=== PATIENT | male | born 1975 | race Caucasian/White ===

== ENCOUNTER → 2016-05-13 | Outpatient (CLI) | payer OTHER ==
[~2016-05-13] MED LIST: AMBI5TAB PO; AZIL1TAB PO; CAL-150C PO; CIPR-250 PO; CYCL10TA PO; ECOT81TA5 PO; LEXA1TAB2 PO; LIDO1OIN2 TOP; LIDO5DIS36 TD; LIPI20TA PO; MULTCAP PO; OXYC1TAB23 PO; PERC7.5T3 PO; REQU2TAB3 PO; REQU4TAB3 PO; TEST200I15 IM; TRIH2TA PO; TYLE325T5 PO; VALI5TAB PO; VIAG100T PO; VICO5TAB16 PO; VITA100066 PO; VITA100072 PO
[2016-05-13 10:45] LABS: EOS # 0.2 K/mm3 (0.0-0.50); EOS % 4.7 % (0.0-3.0); LARGE UNSTAINED CELL # 0.1 K/mm3 (0.0-0.4); LARGE UNSTAINED CELL % 2.7 % (0.0-4.0); LYMPH # 1.7 K/mm3 (1.5-4.5); LYMPH % 38.4 % (24.0-44.0); MEAN CORPUSCULAR HEMOGLOBIN 29.6 pg (27.0-33.0); MEAN CORPUSCULAR HGB CONC 34.5 g/dl (32.0-36.5); MEAN CORPUSCULAR VOLUME 85.6 fl (80.0-96.0); MONO # 0.3 K/mm3 (0.0-0.8); MONO % 6.5 % (0.0-5.0); NEUTROPHILS # 2.1 K/mm3 (1.8-7.7); NEUTROPHILS % 46.6 % (36.0-66.0); PLATELET COUNT, AUTOMATED 253 k/mm3 (150-450); RED CELL DISTRIBUTION WIDTH 12.4 % (11.5-14.5); WHITE BLOOD COUNT 4.4 K/mm3 (4.0-10.0)
[2016-05-13 11:18] LABS: VITAMIN B12 LEVEL 1731 PG/ML
[2016-05-13 12:32] LABS: ALBUMIN/GLOBULIN RATIO 1.18 (1.00-1.93); ALKALINE PHOSPHATASE 99 U/L (45-117); ALT/SGPT 46 U/L (12-78); ANION GAP 6 MEQ/L (8-16); AST/SGOT 29 U/L (15-37); BILIRUBIN,TOTAL 0.3 MG/DL (0.2-1.0); BLOOD UREA NITROGEN 11 MG/DL (7-18); CALCIUM LEVEL 8.6 MG/DL (8.5-10.1); CARBON DIOXIDE LEVEL 32 MEQ/L (21-32); CHLORIDE LEVEL 104 MEQ/L (98-107); CHOLESTEROL LEVEL 178 MG/DL (<200); CREATININE FOR GFR 1.02 MG/DL (0.70-1.30); GLOMERULAR FILTRATION RATE > 60.0 (>60); GLUCOSE, FASTING 77 MG/DL (70-105); POTASSIUM SERUM 4.7 MEQ/L (3.5-5.1); SODIUM LEVEL 142 MEQ/L (136-145); TOTAL PROTEIN 7.4 GM/DL (6.4-8.2); TRIGLYCERIDES LEVEL 132 MG/DL (<150)
== END | disposition home or self-care (01) ==
LOC: M LAB 10:11
PROVIDERS: ATTEND Emergency Medicine
DX: Z98.84 Bariatric surgery status (principal)

== ENCOUNTER → 2016-05-16 | Outpatient (CLI) | payer OTHER ==
[2016-05-16 12:51] LABS: FOLLICLE STIMULATING HORMONE 3.4 mIU/mL (1.4-18.1); LUTEINIZING HORMONE 2.7 mIU/mL (1.5-9.3)
== END ==
LOC: M LAB 11:25
PROVIDERS: ATTEND Emergency Medicine
DX: E29.1 Testicular hypofunction (principal)
CPT/HCPCS: 36415; 83001; 83002; 84402; 84403; 84443; G0103

== ENCOUNTER → 2016-05-29 | Outpatient (CLI) | payer OTHER ==
[2016-05-29 12:48] LABS: PROLACTIN 8.5 NG/ML (2.1-17.7)
[2016-05-29 12:51] LABS: ESTRADIOL 30.1 PG/ML (<39.8)
== END ==
LOC: M SMT 08:54
PROVIDERS: ATTEND Nurse Practitioner Women's Health
DX: E29.1 Testicular hypofunction (principal)
CPT/HCPCS: 36415; 82670; 84146; 84402; 84403; G0463

== ENCOUNTER → 2016-09-09 | Outpatient (CLI) | payer OTHER ==
[~2016-09-09] MED LIST changes: -TRIH2TA PO; +TRIH2TAB3 PO
== END ==
LOC: M LAB 11:40
PROVIDERS: ATTEND Nurse Practitioner Women's Health
DX: E29.1 Testicular hypofunction (principal)

== ENCOUNTER → 2016-12-18 | Outpatient (CLI) | payer OTHER ==
[~2016-12-18] MED LIST changes: -LIDO5DIS36 TD; +LIDO5DIS41 TD; +PERC7.5T11 PO; -PERC7.5T3 PO
[2016-12-18 13:35] LABS: MEAN CORPUSCULAR HEMOGLOBIN 30.9 pg (27.0-33.0); MEAN CORPUSCULAR HGB CONC 34.8 g/dl (32.0-36.5); MEAN CORPUSCULAR VOLUME 88.8 fl (80.0-96.0); RED CELL DISTRIBUTION WIDTH 14.1 % (11.5-14.5); WHITE BLOOD COUNT 3.7 K/mm3 (4.0-10.0)
[2016-12-18 14:16] LABS: ALBUMIN 3.5 GM/DL (3.2-5.2); ALBUMIN/GLOBULIN RATIO 1.17 (1.00-1.93); ALKALINE PHOSPHATASE 78 U/L (45-117); ALT/SGPT 27 U/L (12-78); ANION GAP 7 MEQ/L (8-16); AST/SGOT 28 U/L (15-37); BILIRUBIN,TOTAL 0.2 MG/DL (0.2-1.0); BLOOD UREA NITROGEN 7 MG/DL (7-18); CALCIUM LEVEL 8.4 MG/DL (8.5-10.1); CARBON DIOXIDE LEVEL 28 MEQ/L (21-32); CHLORIDE LEVEL 109 MEQ/L (98-107); CREATININE FOR GFR 1.03 MG/DL (0.70-1.30); GLOMERULAR FILTRATION RATE > 60.0 (>60); GLUCOSE, FASTING 88 MG/DL (70-105); POTASSIUM SERUM 4.5 MEQ/L (3.5-5.1); SODIUM LEVEL 144 MEQ/L (136-145); TOTAL PROTEIN 6.5 GM/DL (6.4-8.2)
== END ==
LOC: M SMT 08:25
PROVIDERS: ATTEND Nurse Practitioner Women's Health
DX: E29.1 Testicular hypofunction (principal)
CPT/HCPCS: 36415; 80053; 84402; 84403; 85027; G0463

== ENCOUNTER → 2018-08-03 | Outpatient (CLI) | payer OTHER ==
[~2018-08-03] MED LIST changes: -VICO5TAB16 PO; +VICO5TAB17 PO; +VITA100018 PO; -VITA100072 PO
[2018-08-03 12:15] LABS: BASO % 0.6 % (0.0-1.0); EOS % 0.2 % (0.0-3.0); HEMATOCRIT 46.8 % (42.0-52.0); HEMOGLOBIN 16.3 g/dl (13.5-17.5); LYMPH # 1.5 10^3/uL (1.5-4.5); LYMPH % 30.7 % (24.0-44.0); MEAN CORPUSCULAR HEMOGLOBIN 30.3 pg (27.0-33.0); MEAN CORPUSCULAR HGB CONC 34.8 g/dl (32.0-36.5); MONO # 0.6 10^3/uL (0.0-0.8); MONO % 11.4 % (0.0-5.0); NEUTROPHILS # 2.8 10^3/uL (1.8-7.7); NEUTROPHILS % 56.9 % (36.0-66.0); PLATELET COUNT, AUTOMATED 267 10^3/uL (150-450); RED BLOOD COUNT 5.38 10^6/uL (4.30-6.10); WHITE BLOOD COUNT 4.9 10^3/uL (4.0-10.0)
[2018-08-03 12:30] LABS: INR 0.98; PARTIAL THROMBOPLASTIN TIME 30.3 SECONDS (25.4-37.6); PROTHROMBIN TIME 13.1 SECONDS (12.1-14.4)
[2018-08-03 12:45] LABS: BLOOD UREA NITROGEN 8 MG/DL (7-18); CALCIUM LEVEL 8.9 MG/DL (8.5-10.1); CARBON DIOXIDE LEVEL 30 MEQ/L (21-32); CHLORIDE LEVEL 102 MEQ/L (98-107); CHOLESTEROL LEVEL 216 MG/DL (<200); CREATININE FOR GFR 0.97 MG/DL (0.70-1.30); GLOMERULAR FILTRATION RATE > 60.0 (>60); GLUCOSE, FASTING 85 MG/DL (70-100); HDL CHOLESTEROL 45 MG/DL (>40); LDL CHOLESTEROL 139 MG/DL (<100); NON-HDL-C 171 MG/DL; POTASSIUM SERUM 4.4 MEQ/L (3.5-5.1); SODIUM LEVEL 136 MEQ/L (136-145); TRIGLYCERIDES LEVEL 161 MG/DL (<150)
== END ==
LOC: M LAB 11:28
PROVIDERS: ATTEND Physician Assistant
DX: Z01.818 Encounter for other preprocedural examination (principal); E78.2 Mixed hyperlipidemia; E29.1 Testicular hypofunction; R29.1 Meningismus

== ENCOUNTER 2019-08-21 10:07 | Inpatient (IN) | payer OTHER ==
[~2019-08-21] VITALS: Ht 190.5 cm; Wt 97.7 kg
[~2019-08-21 10:07] MED LIST changes: +CYCL-707 PO; -CYCL10TA PO
[2019-08-21] MEDS ORDERED: BOOSTRIX/ADACEL VACCINE (DIPHTH/PERTUSS/ACELL/TETANUS) 0.5ML SYR IM ONE (10:30)
[2019-08-21] MEDS ORDERED: ONDANSETRON 4MG/2ML VIAL IV ONE (11:00)
[2019-08-21] MEDS ORDERED: MORPHINE 4 MG/ML 1ML VIAL/SYRINGE (J2270) IV ONE ×2 (11:00→12:00)
[2019-08-21] MEDS ORDERED: FLUO20CA22 PO (11:11)
[2019-08-21] MEDS ORDERED: ZOLP12.515 PO (11:11)
[2019-08-21] MEDS ORDERED: LORA2TAB14 PO (11:11)
[2019-08-21] MEDS ORDERED: PROP20TA72 PO (11:11)
--- NOTE | 2019-08-21 11:14 | REP ---
Clinical: Trauma. Laceration. Technique: AP and lateral views of the right tibia / fibula. Findings: Lateral views demonstrate a thin sliver of presumed bony fragment from the anterior mid tibia. Remainder examination appears normal. Impression: Findings suggesting bony fragment related to trauma from the anterior mid tibia. Electronically Signed by Luis M Toure MD 08/21/2019 11:05 A
[2019-08-21] MEDS ORDERED: ceFAZolin SOD 2 GM in IV 1 EA IV ONE (11:30)
[2019-08-21] MEDS ORDERED: DRIS50003 PO (12:13)
[2019-08-21] MEDS ORDERED: ROPI2TAB3 PO (12:13)
[2019-08-21] MEDS ORDERED: D5W 1,000 ML IV SCH (13:05)
[2019-08-21 14:00] VITALS: BP 112/58
[2019-08-21 14:20] LABS: HEMATOCRIT 42.5 % (42.0-52.0); HEMOGLOBIN 14.7 g/dl (13.5-17.5); MEAN CORPUSCULAR HEMOGLOBIN 29.3 pg (27.0-33.0); MEAN CORPUSCULAR HGB CONC 34.6 g/dl (32.0-36.5); MEAN CORPUSCULAR VOLUME 84.8 fl (80.0-96.0); PLATELET COUNT, AUTOMATED 249 10^3/uL (150-450); RED BLOOD COUNT 5.01 10^6/uL (4.30-6.10); WHITE BLOOD COUNT 5.5 10^3/uL (4.0-10.0)
[2019-08-21] MEDS ORDERED: fentaNYL 100 MCG/2 ML INJECTION (J3010) As Ordered ONE ×2 (14:27→19:05)
[2019-08-21] MEDS ORDERED: dexameTHASONE 4 MG/ML 1ML VIAL (J1100 PER 1MG) As Ordered ONE (14:28)
[2019-08-21] MEDS ORDERED: LIDOCAINE 2% 100MG/5ML SDV (FOR ANES.) As Ordered ONE (14:28)
[2019-08-21] MEDS ORDERED: propofoL 200 MG/20 ML VIAL As Ordered ONE (14:28)
[2019-08-21] MEDS ORDERED: MIDAZOLAM INJ 2MG/2ML VIAL (J2250 PER 1MG) As Ordered ONE (14:28)
[2019-08-21] MEDS ORDERED: ONDANSETRON 4MG/2ML VIAL As Ordered ONE (14:28)
[2019-08-21] MEDS: D5W/0.9% SODIUM CHLORIDE 1,000 ML IV SCH (14:42)
[2019-08-21 14:47] LABS: ALBUMIN 3.6 GM/DL (3.2-5.2); ALT/SGPT 36 U/L (12-78); BILIRUBIN,TOTAL 0.3 MG/DL (0.2-1.0); BLOOD UREA NITROGEN 7 MG/DL (7-18); CALCIUM LEVEL 8.4 MG/DL (8.5-10.1); CARBON DIOXIDE LEVEL 28 MEQ/L (21-32); CHLORIDE LEVEL 109 MEQ/L (98-107); CREATININE FOR GFR 0.85 MG/DL (0.70-1.30); GLOMERULAR FILTRATION RATE > 60.0 (>60); GLUCOSE, FASTING 89 MG/DL (70-100); POTASSIUM SERUM 4.3 MEQ/L (3.5-5.1); SODIUM LEVEL 142 MEQ/L (136-145); TOTAL PROTEIN 6.8 GM/DL (6.4-8.2)
[2019-08-21] MEDS: MORPHINE 4 MG/ML 1ML VIAL/SYRINGE (J2270) IV PRN ×2 (16:25→21:53)
[2019-08-21] MEDS ORDERED: ceFAZolin 2 GM/D5W 50 ML IV BAG (J0690 PER 500MG) As Ordered ONE (16:58)
[2019-08-21] MEDS ORDERED: SCOPOLAMINE 1MG TRANSDERMAL PATCH As Ordered ONE (17:22)
[2019-08-21] MEDS ORDERED: SCOPOLAMINE 1MG TRANSDERMAL PATCH TOP ONE (17:45)
[2019-08-21] MEDS ORDERED: BUPIVACAINE/EPIN 0.25% 30 ML VIAL As Ordered ONE (17:49)
[2019-08-21] MEDS ORDERED: KETOROLAC 60 MG/2 ML VIAL As Ordered ONE (18:13)
[2019-08-21] MEDS ORDERED: ACETAMINOPHEN 1000MG 100ML IV BTL (OFIRMEV) (J0131 PER 10MG) As Ordered ONE (18:13)
--- NOTE | 2019-08-21 18:58 | HPEPDOC ---
General Date of Admission August 21, 2019 at 13:02 Date of Service: August 21, 2019 Other Providers EVA Attending Physician: NINA PUGA MD Chief Complaint The patient is a 44-year-old male admitted with a reason for visit of Laceration Of Right Lower Leg. Source: Patient Exam Limitations: No limitations Timing/Duration: 4-6 hours Severity: Severe History of Present Illness 44 yo man retired ex- with a history of TBI with resultant parkinsonism who presented to the ED after a wood chopping accident with an axe that landed on his R midshin with a laceration, bleeding and visible internal structures. In the ED, he was in significant pain and got morphine and surgery was consulted and Dr. Potter will be taking him to the OR this afternoon. He was otherwise hemodynamically stable, afebrile, and CBC and BMP were unremarkable and EKG non ischemic. Home Medications Scheduled Ergocalciferol (Vitamin D2) (Drisdol) 1,250 Mcg Capsule, 50,000 UNIT PO QWEEK, (Reported) FRIDAY Fluoxetine Hcl (Fluoxetine HCl) 20 Mg Capsule, 40 MG PO DAILY, (Reported) Lorazepam (Lorazepam) 2 Mg Tablet, 2 MG PO TID, (Reported) 0700/1300/1900 Propranolol HCl (Propranolol HCl) 20 Mg Tablet, 20 MG PO BID, (Reported) 0700/1300 Ropinirole HCl (Ropinirole HCl) 2 Mg Tablet, 2 MG PO BID, (Reported) Zolpidem Tartrate (Zolpidem Tartrate ER) 12.5 Mg Tab.mphase, 12.5 MG PO QHS, (Reported) Allergies Coded Allergies: No Known Allergies (Unverified , 09/10/14) Past Medical History Medical History TBI with resultant parkinsonism Anxiety PTSD Surgical History Multiple orthopedic surgeries to back, neck, shoulder and ankle Testicular surgery Abdominal cyst removal Family History Significant Family History: No pertinent family hx Social History * Smoker: Denies Alcohol: Denies Drugs: marijuana (is on medical marijuana for chronic pain) Recent Travel/Sick Contacts: Denies: Recent travel, Recent sick contacts Psychosocial History: Anxiety A-FIB/CHADSVASC A-FIB History Current/History of A-Fib/PAF?: No Current PO Anticoag Therapy: No Age/Risk Factor Scoring CHADSVASC: CHADSVASC Response (Comments) Value Age Risk Factor Age < 65 years old 0 Gender Risk Factor Male 0 Hx of CHF No 0 Hx of HTN No 0 Hx of Stroke/TIA/or VTE No 0 Hx of Diabetes No 0 Hx of Vascular Disease No 0 Total 0 Treatment Treatment ordered: NONE Reason Anticoagulant not given: Not indicated/[id number] Review of Systems Constitutional: Denies: Chills, Fever, Night Sweats Eyes: Denies: Pain, Vision change ENT: Denies: Head Aches, Ear Pain, Dysphagia Skin: Reports: Lesions (bleeding laceration at R midshin); Denies: Rash, Breakdown Pulmonary: Denies: Dyspnea, Cough Cardiovascular: Denies: Chest Pain, Palpitations, Orthopnea, Paroxysmal Noc. Dyspnea, Lt Headedness Gastrointestinal: Denies: Nausea, Vomiting, Abdominal Pain, Diarrhea Genitourinary: Denies: Dysuria, Frequency, Incontinence, Retention Hematologic: Denies: Bruising, Bleeding Excessively Endocrine: Denies: Polydipsia, Polyphagia, Polyuria, Heat Intolerance, Cold Intolerance, Other Endocrine Sx Musculoskeletal: Reports: Leg Pain (R leg pain at sight of axe accident); Denies: Neck Pain, Back Pain, Joint Pain, Muscle Pain, Spasms Neurological: Reports: Other Symptoms (RLE feels numb); Denies: Weakness, Numbness, Change in speech, Confusion Psych: Reports: Anxiety Physical Examination General Exam: Positive: Alert, No Acute Distress Eye Exam: Positive: PERRLA, Conjunctiva & lids normal, EOMI; Negative: Sclera icteric ENT Exam: Positive: Atraumatic, Mucous membr. moist/pink, Pharynx Normal Neck Exam: Positive: Supple; Negative: JVD, thyromegaly Chest Exam: Positive: Clear to auscultation, Normal air movement Heart Exam: Positive: Rate Normal, Regular Rhythm, Normal S1, Normal S2; Negative: Murmurs, Rubs Abdomen Exam: Positive: Normal bowel sounds, Soft; Negative: Tenderness, Hepatospenomegaly Extremity Exam: Positive: Normal pulses, Tenderness (RLE); Negative: Edema, Swelling Skin Exam: Positive: Nl turgor and temperature, Lesion (R midshin laceration 4- 6cm, bloody, with tendons? internal elements on the surface); Negative: Breakdown Neuro Exam: Positive: Normal Speech, Strength at 5/5 X4 ext, Normal Tone, Cranial Nerves 3-12 NL, Other (RUE has resting tremor and natural position is for hadn to curl in contracted position) Psych Exam: Positive: Mental status NL, Anxiety, Oriented x 3 Vital Signs Vital Signs Date Time Temp Pulse Resp B/P (MAP) Pulse Ox O2 Delivery O2 Flow Rate FiO2 08/21/19 16:35 20 Room Air 08/21/19 14:00 97.6 51 112/58 (76) 90 Laboratory Data Labs 24H Laboratory Tests 2 08/21/19 11:45: Coronavirus (COVID-19)(PCR) NEGATIVE 08/21/19 14:04: Nucleated Red Blood Cells % (auto) 0.0, Anion Gap 5L, Glomerular Filtration Rate > 60.0, Calcium Level 8.4L, Total Bilirubin 0.3, Aspartate Amino Transf (AST /SGOT) 16, Alanine Aminotransferase (ALT/SGPT) 36, Alkaline Phosphatase 113, Total Protein 6.8, Albumin 3.6, Albumin/Globulin Ratio 1.13 CBC/BMP Laboratory Tests 08/21/19 14:04 Assessment/Plan 44 yo man who presented after an axe accident while chopping wood for a BBQ and the blade landed on his R melo with a deep laceration with anterior mid tibia bony fragments seen on Xray now going to surgery with Dr. Potter. RLE laceration with bony fragments from anterior mid tibia: -management per surgery, going to surgery shortly -pain management with morphine 4Q4H PRN -continue ancef periop -Dtap booster administered in the ED Anxiety: -continue home ativan TID R arm resting tremor: -continue home propanolol Parknisonism s/s TBI: -continue home requip Depression: --continue home prozac DVT ppx: use SCDs and TEDs Diet: NPO for surgery, otherwise regular Dispo: per surgery team, will monitor for medical issues Plan / VTE VTE Prophylaxis Ordered?: Yes NINA PUGA MD August 21, 2019 18:58
[2019-08-21] MEDS ORDERED: HYDROMORPHONE HCL 0.5 MG/ 0.5 ML SYRINGE (J1170 PER 1) IV PRN (19:00)
[2019-08-21] MEDS ORDERED: ONDANSETRON 4MG/2ML VIAL IV PRN (19:00)
[2019-08-21] MEDS ORDERED: oxyCODONE 5MG TAB PO PRN (19:00)
[2019-08-21] MEDS ORDERED: LR 1,000 ML IV SCH (19:00)
[2019-08-21] MEDS: fentaNYL 100 MCG/2 ML INJECTION (J3010) IV PRN ×6 (19:06→19:43)
[2019-08-21] MEDS: LORazepam 2 MG TAB PO SCH (19:39)
[2019-08-21] MEDS: rOPINIRole 1MG TAB PO SCH ×2 (19:40→20:24)
[2019-08-21 19:45] VITALS: BP 107/61
[2019-08-21] MEDS ORDERED: ceFAZolin SOD 1 GM in D5W MINI-BAG PLUS 50 ML IV SCH (20:00)
[2019-08-21 20:15] VITALS: BP 103/58
[2019-08-21] MEDS ORDERED: zolPIDEM TARTRATE 5 MG TAB PO SCH (21:00)
[2019-08-21 21:15] VITALS: BP 107/58
[2019-08-21] MEDS: ONDANSETRON 4MG/2ML VIAL IV PRN (21:52)
[2019-08-21 22:15] VITALS: BP 105/57
[2019-08-21 23:15] VITALS: BP 117/63
[2019-08-22 00:15] VITALS: BP 116/63
[2019-08-22] MEDS ORDERED: oxyCODONE 5MG TAB PO PRN (00:45)
[2019-08-22] MEDS: ceFAZolin SOD 1 GM in D5W MINI-BAG PLUS 50 ML IV SCH ×3 (00:52→12:54)
[2019-08-22] MEDS: oxyCODONE 5MG TAB PO PRN ×2 (00:53→08:03)
[2019-08-22] MEDS: D5W/0.9% SODIUM CHLORIDE 1,000 ML IV SCH (00:53)
[2019-08-22 02:00] VITALS: BP 108/61
[2019-08-22] MEDS: LORazepam 2 MG TAB PO SCH ×2 (05:23→12:53)
[2019-08-22] MEDS: MORPHINE 4 MG/ML 1ML VIAL/SYRINGE (J2270) IV PRN ×3 (05:23→14:03)
[2019-08-22] MEDS: ONDANSETRON 4MG/2ML VIAL IV PRN (05:23)
[2019-08-22] MEDS: PROPRANOLOL 20 MG TAB PO SCH ×2 (05:25→12:53)
[2019-08-22 06:00] VITALS: BP 116/62
--- NOTE | 2019-08-22 07:22 | RO ---
DATE OF PROCEDURE: 08/21/2019 PREPROCEDURE DIAGNOSIS: Right open tibia fracture. POSTPROCEDURE DIAGNOSIS: Right open tibia fracture. PROCEDURE: Right irrigation and debridement open fracture and open treatment of tibia shaft fracture, closure of complex wound approximately 3 cm. SURGEON: Dr. Uceh Potter AGRONOMY TEACHER: None. ANESTHESIA: INDICATIONS: This is a 44-year-old male who was using an ax and accidentally struck his right leg. He suffered an open fracture to his tibial shaft. We discussed the risks and benefits of surgical intervention. To help decrease his risk of osteomyelitis, we recommend open irrigation and debridement of the open fracture. The patient expressed understanding and agreement with the plan. We discussed risks and benefits of the procedure, including, but not limited to, infection, damage to surrounding structures, incomplete relief and need for further surgery, and patient wished to proceed. BLOOD LOSS: 5 mL. TOURNIQUET TIME: 21 minutes. PREOPERATIVE ANTIBIOTICS: 2 grams of Ancef. COMPLICATIONS: None. DESCRIPTION OF PROCEDURE: The patient was brought back to the operating room (OR) in supine position, underwent general anesthesia, at which point the right leg was prepped and draped in the usual fashion. We then extended the 3 cm traumatic laceration that is over the mid shaft tibia crest 2 cm proximally and distally to get adequate exposure. We sharply debrided skin, subcutaneous tissue, muscle and bone via #15 blade, Bovie and curettes. Once we had adequate debridement, and we had removed the sliver of tibial crest the patient fractured off, which was approximately 3 cm in length and 2 to 3 mm in width and about 2 mm deep, we irrigated 3 liters of normal saline throughout the wound. Once we were happy with our debridement and foreign materials were removed, we closed with #2-0 PDS and #2-0 nylon for skin, dressed with Adaptic gauze, sterile Kerlix, and placed the patient in a posterior-based short-leg splint. The patient was then awakened, taken to the post-anesthesia care unit (PACU) in stable condition. Prior to dressing, patient was also given 30 mL of 0.25% Marcaine with epinephrine in the form of a local block. POSTOPERATIVE PLAN: Patient will be touch-down weightbearing of the right lower extremity for approximately 2 weeks. He will receive Surgical Care Improvement Project (SCIP) antibiotic prophylaxis since there was no significant contaminant, patient has already had his tetanus updated and will likely be discharged tomorrow.
[2019-08-22] MEDS: rOPINIRole 1MG TAB PO SCH (08:03)
[2019-08-22] MEDS ORDERED: FLUoxetine 20 MG CAP PO SCH (09:00)
[2019-08-22] MEDS ORDERED: VITAMIN D 50,000 UNITS CAPSULE (ERGOCALCIFEROL 1.25MG) PO SCH (09:00)
[2019-08-22] MEDS ORDERED: INFLUENZA QUADRIVALENT PF VACCINE 0.5ML SYRINGE (90686) IM ONE (09:00)
[2019-08-22] MEDS ORDERED: OXYC-517 PO (10:19)
--- NOTE | 2019-08-22 11:18 | IPNPDOC ---
Text Note Date of Service The patient was seen on 08/22/19. NOTE General: Alert, No Acute Distress Eye: PERRLA, Conjunctiva & lids normal, EOMI, anicteric ENT: Atraumatic, MMM Neck: Supple, no JVD or thyromegaly Chest: Clear to auscultation, Normal air movement Heart: RRR, no mrg Abdomen: Normal bowel sounds, soft, NTND Extremity: WWP, RLE now in half cast and wrapped without edema or swelling Skin: No erythema or rashes, RLE wrapped Neuro: Normal Speech, Strength at 5/5 X4 ext, Normal Tone, Cranial Nerves 3-12 NL,RUE with baseline resting tremor and hand curled into a loose fist Psych: Mental status NL, Anxiety, Oriented x 3 Labs: reviewed. Assessment: 44 yo man who presented after an axe accident while chopping wood for a BBQ and the blade landed on his R melo with a deep laceration with anterior mid tibia bony fragments seen on Xray s/p surgery with Dr. Potter. Plan: RLE laceration with bony fragments from anterior mid tibia: -management per surgical team -pain management per surgical team, oxy [id number] for mild pain, [id number] for severe pain, morphine 4Q4 IV PRN -continue ancef periop -Dtap booster administered in the ED Anxiety: -continue home ativan TID R arm resting tremor: -continue home propanolol Parknisonism s/s TBI: -continue home requip Depression: --continue home prozac DVT ppx: use SCDs and TEDs Diet: regular Dispo: per surgery team, will monitor for medical issues, otherwise medically cleared for discharge home. VS,Fishbone, I+O VS, Fishbone, I+O Laboratory Tests 08/21/19 14:04 Vital Signs Date Time Temp Pulse Resp B/P (MAP) Pulse Ox O2 Delivery O2 Flow Rate FiO2 08/22/19 06:00 98.4 50 18 116/62 (80) 95 Room Air 08/21/19 19:11 2.0 I&O- Last 24 Hours up to 6 AM 08/22/19 06:00 Intake Total 1840 ml Output Total 205 ml Balance 1635 ml NINA PUGA MD August 22, 2019 07:17
--- NOTE | 2019-08-22 11:37 | DS.PDOC ---
Discharge Summary General Date of Admission August 21, 2019 at 13:02 Date of Discharge 08/22/2019 Attending Physician: NINA PUGA MD Specialist/Consultants Involve: BASIM POTTER MD Discharge Summary PROCEDURES PERFORMED DURING STAY: Right irrigation and debridement open fracture and open treatment of tibia shaft fracture, closure of complex wound approximately 3 cm, by Dr. Potter on 08/21/2019 ADMITTING DIAGNOSES: 1. Right lower extremity laceration 2. Open fracture to his right tibial shaft DISCHARGE DIAGNOSES: 1. Right lower extremity laceration 2. Open fracture to his right tibial shaft 3. History of TBI with residual parkinsonism 4. PTSD 5. Anxiety disorder 6. chronic back pain COMPLICATIONS/CHIEF COMPLAINT: Laceration Of Right Lower Leg. HISTORY OF PRESENT ILLNESS: 44 yo man retired ex- with a history of TBI with residual parkinsonism who presented to the ED after a wood chopping accident with an axe that landed on his R midshin with a laceration, bleeding and visualization internal structures. HOSPITAL COURSE: In the ED, he was in significant pain and got morphine and surgery was consulted and Dr. Potter will be taking him to the OR this afternoon. He was otherwise hemodynamically stable, afebrile, and CBC and BMP were unremarkable and EKG non ischemic. Surgery was consulted from the ED and he had a right irrigation and debridement of open fracture and open treatment of tibia shaft fracture with closure of complex wound approximately 3 cm, by Dr. Potter on 08/21/2019 to help decrease his risk of osteomyelitis. Postop, surgery recommended touch-down weightbearing of the right lower extremity for approximately 2 weeks, Surgical Care Improvement Project (SCIP) antibiotic prophylaxis since there was no significant contaminant, and had been given the tetanus booster in the ED on presentation. He otherwise remained clinically stable and pain was managed by the surgical team. Of note, he received periop Ancef and is now being discharged home with surgery follow up. DISCHARGE MEDICATIONS: Please see below. ALLERGIES: Please see below. PHYSICAL EXAMINATION ON DISCHARGE: VITAL SIGNS: Please see below. General: Alert, No Acute Distress Eye: PERRLA, Conjunctiva & lids normal, EOMI, anicteric ENT: Atraumatic, MMM Neck: Supple, no JVD or thyromegaly Chest: Clear to auscultation, Normal air movement Heart: RRR, no mrg Abdomen: Normal bowel sounds, soft, NTND Extremity: WWP, RLE now in half cast and wrapped without edema or swelling Skin: No erythema or rashes, RLE wrapped Neuro: Normal Speech, Strength at 5/5 X4 ext, Normal Tone, Cranial Nerves 3-12 NL,RUE with baseline resting tremor and hand curled into a loose fist Psych: Mental status NL, Anxiety, Oriented x 3 LABORATORY DATA: Please see below. IMAGING: Tibia, Fibula lower leg RIGHT Lateral views demonstrate a thin sliver of presumed bony fragment from the anterior mid tibia. Remainder examination appears normal. Impression: Findings suggesting bony fragment related to trauma from the anterior mid tibia. PROGNOSIS: Good ACTIVITY: surgery recommended touch-down weightbearing of the right lower extremity for approximately 2 weeks DIET: Regular DISCHARGE PLAN: Surgery recommended touch-down weightbearing of the right lower extremity for approximately 2 weeks, Surgical Care Improvement Project (SCIP) antibiotic prophylaxis since there was no significant contaminant DISPOSITION: Home DISCHARGE INSTRUCTIONS: 1. Surgery recommended touch-down weightbearing of the right lower extremity for approximately 2 weeks, Surgical Care Improvement Project (SCIP) antibiotic prophylaxis since there was no significant contaminant ITEMS TO FOLLOWUP ON ON OUTPATIENT: 1. Right lower extremity laceration 2. Open fracture to his right tibial shaft DISCHARGE CONDITION: Stable TIME SPENT ON DISCHARGE: 32 minutes. Vital Signs/I&Os Vital Signs Date Time Temp Pulse Resp B/P (MAP) Pulse Ox O2 Delivery O2 Flow Rate FiO2 08/22/19 09:58 18 08/22/19 06:00 98.4 50 116/62 (80) 95 Room Air 08/21/19 19:11 2.0 I&O- Last 24 Hours up to 6 AM 08/22/19 06:00 Intake Total 1840 ml Output Total 205 ml Balance 1635 ml Laboratory Data Labs 24H Laboratory Tests 2 08/21/19 11:45: Coronavirus (COVID-19)(PCR) NEGATIVE 08/21/19 14:04: Nucleated Red Blood Cells % (auto) 0.0, Anion Gap 5L, Glomerular Filtration Rate > 60.0, Calcium Level 8.4L, Total Bilirubin 0.3, Aspartate Amino Transf (AST/SGOT) 16, Alanine Aminotransferase (ALT/SGPT) 36, Alkaline Phosphatase 113, Total Protein 6.8, Albumin 3.6, Albumin/Globulin Ratio 1.13 CBC/BMP Laboratory Tests 08/21/19 14:04 Discharge Medications Scheduled Ergocalciferol (Vitamin D2) (Drisdol) 1,250 Mcg Capsule, 50,000 UNIT PO QWEEK, (Reported) FRIDAY Fluoxetine Hcl (Fluoxetine HCl) 20 Mg Capsule, 40 MG PO DAILY, (Reported) Lorazepam (Lorazepam) 2 Mg Tablet, 2 MG PO TID, (Reported) 0700/1300/1900 Propranolol HCl (Propranolol HCl) 20 Mg Tablet, 20 MG PO BID, (Reported) 0700/1300 Ropinirole HCl (Ropinirole HCl) 2 Mg Tablet, 2 MG PO BID, (Reported) Zolpidem Tartrate (Zolpidem Tartrate ER) 12.5 Mg Tab.mphase, 12.5 MG PO QHS, (Reported) Scheduled PRN Oxycodone HCl (Oxycodone HCl) 5 Mg Tablet, 1-2 TABS PO Q4H PRN for PAIN Allergies Coded Allergies: No Known Allergies (Unverified , 09/10/14) NINA PUGA MD August 22, 2019 11:36
[2019-08-22 12:53] VITALS: BP 116/62
--- NOTE | 2019-08-22 13:24 | CR ---
DATE OF CONSULTATION: 08/21/2019 CHIEF COMPLAINT: Right leg pain. HISTORY OF PRESENT ILLNESS: Patient today was outside using an axe, when he accidentally caught his right leg. He immediately appreciated 10/10 pain, swelling, and bleeding. He washed out the wound at home and then presented to the emergency room (ER) due to the continued pain. He was able to ambulate but with significant discomfort, 10/10, sharp, located in anterior tibia. He does complain of diffuse numbness and tingling distal to the laceration toward his foot. The pain is improved with immobilization, pain medication, and worsened with ambulation. Denies any fevers, chills, nausea, or vomiting. A complete 10-system review is significant for pertinent positives and negatives in history of present illness (HPI). All other systems negative. HOME MEDICATIONS: - lorazepam - fluoxetine - zolpidem - propranolol - ergocalciferol - ropinirole PAST SURGERIES: He has had: 1. Right ankle surgery. 2. Shoulder surgery. 3. Back and neck surgery. 4. Testicular surgery. PAST MEDICAL HISTORY: 1. Parkinson's. 2. Anxiety and depression. ALLERGIES: No known drug allergies. SOCIAL HISTORY: Lives at home with his and also uses medical cannabis. PHYSICAL EXAMINATION: Patient awake, alert, oriented, well dressed, appropriate affect. Breathing unlabored on room air. Normocephalic, atraumatic. Bilateral upper extremities: No tenderness to palpation. Full, active range of motion of the fingers, wrists, and elbows without any tenderness or discomfort. Skin intact. Radial pulse 2+, regular rate. Positive anterior interosseous nerve (AIN), posterior interosseous nerve (PIN), and ulnar motor function. Sensation intact to light touch in superficial sensory branch of radial nerve, median nerve, and ulnar nerve. Left lower extremity: No tenderness to palpation. Full, active range of motion of the ankle, knee, and hip. Skin intact. Posterior tibial pulse 2+, regular rate. Positive extensor hallucis longus (EHL), flexor hallucis longus (FHL), tibia, and gastroc motor function. Sensation intact to light touch in superficial peroneal, deep peroneal, sural, saphenous, tibial distributions. Right lower extremity: 3 cm laceration over the tibia, anterior, deep to bone. Positive EHL, FHL, tibia, and gastroc motor function. Posterior tibial pulse 2+, regular rate. No significant gross contamination. Diffuse global decreased sensation about the entire foot in the superficial peroneal, deep peroneal, sural, saphenous, tibial distributions. The laceration is directly over the tibial crest. Imaging is reviewed. X-ray demonstrates tibial cortical fracture at the anterior tibial cortex along the spine. It does not appear to be a complete fracture. White cell count 5.5, hemoglobin and hematocrit 14.7 and 42.5. ASSESSMENT AND PLAN: This is a 44-year-old male who suffered an open laceration and open fracture of his right tibia. I discussed with the patient at this point in time plan is to go in there for irrigation and debridement to decrease the risk of ongoing infection. He is already started on IV Ancef and given updated Tetanus. We will keep him for Surgical Care Improvement Project (SCIP) antibiotic prophylaxis postoperatively given the lack of gross contamination and will discharge after that is complete. He will be touch-down weightbearing on right lower extremity until he is seen in 2 weeks postoperatively.
== END 2019-08-22 14:10 | disposition home or self-care (01) | DRG 494 ==
LOC: M ED 10:07 → M ED INP 13:02 → ENRESERV 13:20 → M MS5PR 14:50
PROVIDERS: ADMIT Internal Medicine; ATTEND Internal Medicine
PROC: 0QBG0ZZ Excision of Right Tibia, Open Approach (ICD-10-PCS; principal; 2019-08-21 11:41)
DX: S82.2 Fracture of shaft of tibia (principal); W27.0XXA Contact with workbench tool, initial encounter; Y92.009 Unspecified place in unspecified non-institutional (private) residence as the place of occurrence of the external cause; Y93.H9 Activity, other involving exterior property and land maintenance, building and construction; Y99.8 Other external cause status; F41.9 Anxiety disorder, unspecified; G20 Parkinson's disease; F32.9 Major depressive disorder, single episode, unspecified; Z87.820 Personal history of traumatic brain injury; F43.10 Post-traumatic stress disorder, unspecified; Z79.899 Other long term (current) drug therapy

== ENCOUNTER → 2019-11-04 | Outpatient (CLI) | payer OTHER ==
[~2019-11-04] MED LIST changes: +DRIS50003 PO; +FLUO20CA22 PO; +LORA2TAB14 PO; +OXYC-517 PO; +PROP20TA72 PO; +ROPI2TAB3 PO; +ZOLP12.518 PO
[2019-11-04 13:53] LABS: BASO % 0.6 % (0.0-1.0); HEMATOCRIT 45.4 % (42.0-52.0); HEMOGLOBIN 15.3 g/dl (13.5-17.5); LYMPH # 1.5 10^3/uL (1.5-5.0); LYMPH % 28.3 % (24.0-44.0); MEAN CORPUSCULAR HEMOGLOBIN 29.7 pg (27.0-33.0); MEAN CORPUSCULAR HGB CONC 33.7 g/dl (32.0-36.5); MONO # 0.4 10^3/uL (0.0-0.8); MONO % 8.1 % (0.0-5.0); NEUTROPHILS # 3.2 10^3/uL (1.5-8.5); NEUTROPHILS % 62.8 % (36.0-66.0); PLATELET COUNT, AUTOMATED 284 10^3/uL (150-450); RED BLOOD COUNT 5.16 10^6/uL (4.30-6.10); WHITE BLOOD COUNT 5.2 10^3/uL (4.0-10.0)
== END ==
LOC: M LAB 12:31
PROVIDERS: ATTEND Nurse Practitioner Psychiatric/Mental Health
DX: F33.1 Major depressive disorder, recurrent, moderate (principal); E29.1 Testicular hypofunction; Z79.899 Other long term (current) drug therapy

== ENCOUNTER → 2019-11-04 | Outpatient (CLI) | payer OTHER ==
[2019-11-04 13:52] LABS: BASO % 0.6 % (0.0-1.0); HEMATOCRIT 45.1 % (42.0-52.0); HEMOGLOBIN 15.3 g/dl (13.5-17.5); LYMPH # 1.4 10^3/uL (1.5-5.0); LYMPH % 28.7 % (24.0-44.0); MEAN CORPUSCULAR HEMOGLOBIN 29.9 pg (27.0-33.0); MEAN CORPUSCULAR HGB CONC 33.9 g/dl (32.0-36.5); MEAN CORPUSCULAR VOLUME 88.3 fl (80.0-96.0); MONO # 0.4 10^3/uL (0.0-0.8); MONO % 8.4 % (0.0-5.0); NEUTROPHILS # 3.1 10^3/uL (1.5-8.5); NEUTROPHILS % 62.1 % (36.0-66.0); PLATELET COUNT, AUTOMATED 277 10^3/uL (150-450); RED BLOOD COUNT 5.11 10^6/uL (4.30-6.10)
[2019-11-04 14:29] LABS: ALBUMIN 3.9 GM/DL (3.2-5.2); ALT/SGPT 23 U/L (12-78); BILIRUBIN,TOTAL 0.5 MG/DL (0.2-1.0); BLOOD UREA NITROGEN 5 MG/DL (7-18); CALCIUM LEVEL 8.9 MG/DL (8.5-10.1); CARBON DIOXIDE LEVEL 29 MEQ/L (21-32); CHLORIDE LEVEL 105 MEQ/L (98-107); CHOLESTEROL LEVEL 190 MG/DL (<200); CHOLESTEROL RISK RATIO 5.135 (<5); CREATININE FOR GFR 0.93 MG/DL (0.70-1.30); GLOMERULAR FILTRATION RATE > 60.0 (>60); GLUCOSE, FASTING 77 MG/DL (70-100); HDL CHOLESTEROL 37 MG/DL (>40); LDL CHOLESTEROL 125 MG/DL (<100); NON-HDL-C 153 MG/DL; POTASSIUM SERUM 4.4 MEQ/L (3.5-5.1); SODIUM LEVEL 140 MEQ/L (136-145); TOTAL PROTEIN 7.4 GM/DL (6.4-8.2); TRIGLYCERIDES LEVEL 139 MG/DL (<150)
== END ==
LOC: M LAB 12:29
PROVIDERS: ATTEND Nurse Practitioner Family
DX: Z00.00 Encounter for general adult medical examination without abnormal findings (principal); Z79.899 Other long term (current) drug therapy

== ENCOUNTER 2020-06-09 15:46 | Emergency (ER) | payer OTHER ==
[~2020-06-09] VITALS: Ht 190.5 cm; Wt 104.5 kg
--- OUTSIDE RECORDS SUMMARY | 2020-06-09 15:53 | CCD ---
Author Author [facility] Organization [facility] Address Unknown Phone Unavailable Care Team Providers Care C[employer]ide Furnace Operator Name Role Phone Oskar Adame PA-C Unavailable Unavailable Oskar Adame PA-C Unavailable Unavailable Oskar Adame PA-C Unavailable Unavailable Oskar Adame PA-C Unavailable Unavailable Oskar Adame PA-C Unavailable Unavailable PHYSICIAN, ER Unavailable Unavailable HERNANDO AGUILAR Unavailable Unavailable Pleskach, Zoila HOME OFFICE CLAIMS EXAMINER Unavailable Unavailable Pleskach, Zoila HOME OFFICE CLAIMS EXAMINER Unavailable Unavailable Pleskach, Zoila HOME OFFICE CLAIMS EXAMINER Unavailable Unavailable Plesk[place], Zoila HOME OFFICE CLAIMS EXAMINER Unavailable Unavailable Pleskach, Zoila HOME OFFICE CLAIMS EXAMINER Unavailable Unavailable P[place], Zoila HOME OFFICE CLAIMS EXAMINER Unavailable Unavailable Pleskach, Zoila HOME OFFICE CLAIMS EXAMINER Unavailable Unavailable Pleskach, Zoila HOME OFFICE CLAIMS EXAMINER Unavailable Unavailable Pleskach, Zoila HOME OFFICE CLAIMS EXAMINER Unavailable Unavailable P[place], Zoila HOME OFFICE CLAIMS EXAMINER Unavailable Unavailable Pleskach, Zoila HOME OFFICE CLAIMS EXAMINER Unavailable Unavailable Pleskach, Zoila HOME OFFICE CLAIMS EXAMINER Unavailable Unavailable Pleskach, Zoila HOME OFFICE CLAIMS EXAMINER Unavailable Unavailable P[place], Zoila HOME OFFICE CLAIMS EXAMINER Unavailable Unavailable Pleskach, Zoila HOME OFFICE CLAIMS EXAMINER Unavailable Unavailable P[place], Zoila HOME OFFICE CLAIMS EXAMINER Unavailable Unavailable P[place], Zoila HOME OFFICE CLAIMS EXAMINER Unavailable Unavailable [place], Zoila HOME OFFICE CLAIMS EXAMINER Unavailable Unavailable [place], Zoila HOME OFFICE CLAIMS EXAMINER Unavailable Unavailable P[place], Zoila HOME OFFICE CLAIMS EXAMINER Unavailable Unavailable Pleskach, Zoila HOME OFFICE CLAIMS EXAMINER Unavailable Unavailable [place], Zoila HOME OFFICE CLAIMS EXAMINER Unavailable Unavailable P[place], Zoila HOME OFFICE CLAIMS EXAMINER Unavailable Unavailable P[place], Zoila HOME OFFICE CLAIMS EXAMINER Unavailable Unavailable Plesk[place], Zoila HOME OFFICE CLAIMS EXAMINER Unavailable Unavailable P[place], Zoila HOME OFFICE CLAIMS EXAMINER Unavailable Unavailable P[place], Zoila HOME OFFICE CLAIMS EXAMINER Unavailable Unavailable P[place], Zoila HOME OFFICE CLAIMS EXAMINER Unavailable Unavailable P[place], Zoila HOME OFFICE CLAIMS EXAMINER Unavailable Unavailable [place], Zoila HOME OFFICE CLAIMS EXAMINER Unavailable Unavailable PHYSICIAN, PHYSICIAN ER Unavailable Unavailable SOTO, BESSY DREA PA-C Unavailable Unavailable SOTO, BESSY DREA PA-C Unavailable Unavailable SOTO, BESSY DREA PA-C Unavailable Unavailable SOTO, BESSY DREA PA-C Unavailable Unavailable SOTO, BESSY DREA PA-C Unavailable Unavailable SOTO, BESSY DREA PA-C Unavailable Unavailable SOTO, BESSY DREA PA-C Unavailable Unavailable SOTO, BESSY DREA PA-C Unavailable Unavailable SOTO, BESSY DREA PA-C Unavailable Unavailable MARGY RUBALCAVA Unavailable Unavailable DESJARLAIS, SALMA ANODE BUILDER Unavailable Unavailable DESJARLAIS, SALMA ANODE BUILDER Unavailable Unavailable DESJARLAIS, SALMA ANODE BUILDER Unavailable Unavailable DESJARLAIS, SALMA ANODE BUILDER Unavailable Unavailable DESJARLAIS, SALMA ANODE BUILDER Unavailable Unavailable DESJARLAIS, SALMA ANODE BUILDER Unavailable Unavailable DESJARLAIS, SALMA ANODE BUILDER Unavailable Unavailable DESJARLAIS, SALMA ANODE BUILDER Unavailable Unavailable DESJARLAIS, SALMA ANODE BUILDER Unavailable Unavailable SERGEY, 0000{ Unavailable Unavailable Re-disclosure Warning The records that you are about to access may contain information from federally-assisted alcohol or drug abuse programs. If such information is present, then the following federally mandated warning applies: This information has been disclosed to you from records protected by federal confidentiality rules (42 CFR part 2). The federal rules prohibit you from making any further disclosure of this information unless further disclosure is expressly permitted by the written consent of the person to whom it pertains or as otherwise permitted by 42 CFR part 2. A general authorization for the release of medical or other information is NOT sufficient for this purpose. The Federal rules restrict any use of the information to criminally investigate or prosecute any alcohol or drug abuse patient.The records that you are about to access may contain highly sensitive health information, the redisclosure of which is protected by Article 27-F of the [facility] Public Health law. If you continue you may have access to information: Regarding HIV / AIDS; Provided by facilities licensed or operated by the [facility] Office of Mental Health; or Provided by the [facility] Office for People With Developmental Disabilities. If such information is present, then the following [facility] mandated warning applies: This information has been disclosed to you from confidential records which are protected by state law. State law prohibits you from making any further disclosure of this information without the specific written consent of the person to whom it pertains, or as otherwise permitted by law. Any unauthorized further disclosure in violation of state law may result in a fine or group home sentence or both. A general authorization for the release of medical or other information is NOT sufficient authorization for further disc losure. Family History Family Member Name Family Member Gender Family Member Status Date o f Status Description Data Source(s) Unknown Unknown Problem [facility] ([facility]) Unknown Female Problem [facility] ([facility] ) Unknown Unknown Problem [facility] ([facility] ) Unknown Unknown Problem [facility] ([facility] ) Unknown Unknown Problem [facility] ([facility] ) Unknown Unknown Problem [facility] ([facility] ) Unknown Unknown Problem [facility] ([facility] ) Unknown Unknown Problem [facility] ([facility] ) Unknown Female Problem [facility] ([facility] Encounters Encounter Providers Location Date Indications Data Source(s ) Outpatient Attender: SALMA BARRETO NP 05/24/2020 09: 12:00 AM [facility] Outpatient Attender: SALMA BARRETO NP 04/26/2020 08: 50:00 AM [facility] Outpatient Attender: HERNANDO AGUILAR 04/06/2020 01:00:00 PM [facility] Outpatient Attender: SALMA BARRETO NP 03/30/2020 03: 37:00 PM [facility] Outpatient Attender: SALMA BARRETO NP 02/25/2020 04: 00:00 PM [facility] Outpatient Attender: HERNANDO AGUILAR 02/18/2020 04:00:00 PM [facility] Outpatient Attender: HERNANDO AGUILAR 02/11/2020 03:56:00 PM [facility] Outpatient Attender: SALMA BARRETO ANODE BUILDER 02/10/2020 03: 12:00 PM [facility] Outpatient Attender: HERNANDO AGUILAR 02/04/2020 04:00:00 PM [facility] Outpatient Attender: SALMA BARRETO ANODE BUILDER 01/28/2020 04: 20:00 PM [facility] Outpatient Attender: HERNANDO AGUILAR 01/24/2020 10:57:00 AM [facility] Outpatient Attender: HERNANDO AGUILAR 01/20/2020 09:04:00 AM [facility] Outpatient Attender: SALMA BARRETO ANODE BUILDER 01/13/2020 04: 00:00 PM [facility] Outpatient Attender: HERNANDO AGUILAR 01/07/2020 11:00:00 AM [facility] Outpatient Attender: SALMA BARRETO ANODE BUILDER 12/23/2019 04: 00:00 PM [facility] Outpatient Attender: HERNANDO AGUILAR 12/13/2019 04:00:00 PM [facility] Outpatient Attender: SALMA CARBONERVÍCTOR ANODE BUILDER 12/09/2019 03: 40:00 PM [facility] Outpatient Attender: SALMA RAFRVÍCTOR ANODE BUILDER 11/30/2019 11: 20:00 AM [facility] Outpatient Attender: SALMA MARY LOU ANODE BUILDER 11/16/2019 04: 00:00 PM [facility] Outpatient Attender: HERNANDO AGUILAR 11/16/2019 03:00:00 PM [facility] Outpatient Attender: SALMA CARBONERVÍCTOR ANODE BUILDER 11/11/2019 04: 20:00 PM [facility] Outpatient Attender: HERNANDO AGUILAR 11/09/2019 10:00:00 AM [facility] Outpatient Attender: Zoila GLASERP Main Office 11/04/2019 1 1:45:00 AM [facility] Outpatient Attender: HERNANDO AGUILAR 11/02/2019 01:00:00 PM [facility] Outpatient Attender: SALMA BARRETO NP 10/21/2019 10: 00:00 AM [facility] Outpatient Attender: HERNANDO AGUILAR 10/13/2019 10:00:00 AM [facility] Outpatient Attender: HERNANDO AGUILAR 09/29/2019 04:00:00 PM [facility] Outpatient Attender: SALMA BARRETO NP 09/15/2019 03: 49:00 PM [facility] Outpatient Attender: HERNANDO AGUILAR 09/14/2019 04:00:00 PM [facility] Outpatient Attender: SALMA BARRETO NP 08/31/2019 03: 40:00 PM [facility] Outpatient Attender: SALMA BARRETO NP 08/27/2019 04: 00:00 PM [facility] Admission cancelled. Disregard status an d admitted date. Outpatient Attender: HERNANDO AGUILAR 08/19/2019 09:00:00 AM [facility] Outpatient Attender: HERNANDO AGUILAR 08/02/2019 09:07:00 AM [facility] Outpatient Attender: SALMA BARRETO NP 07/30/2019 03: 40:00 PM [facility] Outpatient Attender: HERNANDO AGUILAR 07/26/2019 10:00:00 AM [facility] Outpatient Attender: DREA MÁRQUEZCAttender: MARGY RUBALCAVA 07/20/2019 04:11:00 PM [facility] Emergency Attender: ER PHYSICIAN 07/19/2019 06:08:16 AM E [facility] Attender: 0000{ DOS RIOS 0 05:39:00 AM EDT - 07/19/2019 07:48:00 AM EDT [facility] Emergency Attender: Andrés Montes: ER PHYSICIAN 07/19/2019 05:39:00 AM EDT - 07/19/2019 07:48:00 AM EDT CHEST PAIN [facility] CHEST PAIN Patient discharged. Outpatient Attender: SALMA BARRETO NP 07/15/2019 04: 20:00 PM [facility] Outpatient Attender: SALMA BARRETO NP 06/29/2019 04: 40:00 PM [facility] Outpatient Attender: SALMA BARRETO NP 02/09/2019 03: 00:00 PM [facility] Medications Medication Brand Name Start Date Product Form Dose Route Admi nistrative Instructions Pharmacy Instructions Status Indications Reaction Description Data Source(s) 10 mg 05/29/2020 12:00:00 AM EST capsule,extended releas e 24hr 60 TAKE ONE CAPSULE BY MOUTH TWICE A DAY MAXIMUM DAILY DOSE = 2 TAKE ONE CAPSULE BY MOUTH TWICE A DAY MAXIMUM DAILY DOSE = 2 SOLD: 05/29/2020 [facility] 10 mg 04/28/2020 12:00:00 AM EST capsule,extended releas e 24hr 60 TAKE ONE CAPSULE BY MOUTH TWICE A DAY MAXIMUM DAILY DOSE = 2 TAKE ONE CAPSULE BY MOUTH TWICE A DAY MAXIMUM DAILY DOSE = 2 SOLD: 05/01/2020 [facility] Clonidine Hydrochloride 0.2 MG Oral Tablet CLONIDINE HCL 04/25/2020 12:00:00 AM EST tablet 90 TAKE ONE TABLET BY MOUTH THR EE TIMES A DAY NEEDED TAKE ONE TABLET BY MOUTH THREE TIMES A DAY NEEDED SOLD: 05/01/2020 [facility] quetiapine 200 MG Oral Tablet QUETIAPINE FUMARATE 03/31/2020 12: 00:00 AM EST tablet 60 TAKE TWO TABLETS BY MOUTH AT BED TIME TAKE TWO TABLETS BY MOUTH AT BEDTIME SOLD: 05/11/2020 [facility] quetiapine 200 MG Oral Tablet QUETIAPINE FUMARATE 03/31/2020 12: 00:00 AM EST tablet 60 TAKE TWO TABLETS BY MOUTH AT BED TIME TAKE TWO TABLETS BY MOUTH AT BEDTIME SOLD: 04/05/2020 [facility] 10 mg 03/30/2020 12:00:00 AM EST capsule,extended releas e 24hr 60 TAKE ONE CAPSULE BY MOUTH TWICE A DAY MAXIMUM DAILY DOSE = 2 TAKE ONE CAPSULE BY MOUTH TWICE A DAY MAXIMUM DAILY DOSE = 2 SOLD: 03/31/2020 [facility] Clonidine Hydrochloride 0.2 MG Oral Tablet CLONIDINE HCL 03/21/2020 12:00:00 AM EST tablet 90 TAKE ONE TABLET BY MOUTH THR EE TIMES A DAY NEEDED TAKE ONE TABLET BY MOUTH THREE TIMES A DAY NEEDED SOLD: 04/24/2020 [facility] Clonidine Hydrochloride 0.2 MG Oral Tablet CLONIDINE HCL 03/21/2020 12:00:00 AM EST tablet 90 TAKE ONE TABLET BY MOUTH THR EE TIMES A DAY NEEDED TAKE ONE TABLET BY MOUTH THREE TIMES A DAY NEEDED SOLD: 03/22/2020 [facility] quetiapine 200 MG Oral Tablet QUETIAPINE FUMARATE 03/18/2020 12: 00:00 AM EST tablet 30 TAKE ONE TABLET BY MOUTH AT BEDT ELANA TAKE ONE TABLET BY MOUTH AT BEDTIME SOLD: 03/20/2020 [facility] quetiapine 50 MG Oral Tablet QUETIAPINE FUMARATE 03/18/2020 12:0 0:00 AM EST tablet 90 TAKE ONE TABLET BY MOUTH THREE T IMES A DAY TAKE ONE TABLET BY MOUTH THREE TIMES A DAY SOLD: 03/20/2020 [facility] 10 mg 03/01/2020 12:00:00 AM EST capsule,extended releas e 24hr 60 TAKE ONE CAPSULE BY MOUTH TWICE A DAY MAXIMUM DAILY DOSE = 2 TAKE ONE CAPSULE BY MOUTH TWICE A DAY MAXIMUM DAILY DOSE = 2 SOLD: 03/01/2020 [facility] 2 mg 02/26/2020 12:00:00 AM EST tablet 30 TAKE ONE TABLET BY MOUTH AT BEDTIME TAKE ONE TABLET BY MOUTH AT BEDTIME SOLD: 03/30/2020 [facility] 2 mg 02/26/2020 12:00:00 AM EST tablet 30 TAKE ONE TABLET BY MOUTH AT BEDTIME TAKE ONE TABLET BY MOUTH AT BEDTIME SOLD: 05/01/2020 [facility] 2 mg 02/26/2020 12:00:00 AM EST tablet 60 TAKE ONE TABLET BY MOUTH TWICE A DAY MAXIMUM DAILY DOSE = 2 TAKE ONE TABLET BY MOUTH TWICE A DAY MAX IMUM DAILY DOSE = 2 SOLD: 02/26/2020 [facility] 2 mg 02/26/2020 12:00:00 AM EST tablet 30 TAKE ONE TABLET BY MOUTH AT BEDTIME TAKE ONE TABLET BY MOUTH AT BEDTIME SOLD: 02/26/2020 [facility] 10 mg 02/11/2020 12:00:00 AM EDT capsule,extended releas e 24hr 30 TAKE ONE CAPSULE BY MOUTH EVERY MORNING MAXIMUM DAILY DOSE = 1 TAKE ONE CAPSULE BY MOUTH EVERY MORNING MAXIMUM DAILY DOSE = 1 SOLD: 02/12/2020 [facility] Clonidine Hydrochloride 0.2 MG Oral Tablet CLONIDINE HCL 02/11/2020 12:00:00 AM EDT tablet 90 TAKE ONE TABLET BY MOUTH THR EE TIMES A DAY NEEDED TAKE ONE TABLET BY MOUTH THREE TIMES A DAY NEEDED SOLD: 02/12/2020 [facility] 10 mg 01/29/2020 12:00:00 AM EDT capsule,extended releas e 24hr 15 TAKE ONE CAPSULE BY MOUTH EVERY MORNING FOR 15 DAYS MAXIMUM DAILY DOSE = 1 TAKE ONE CAPSULE BY MOUTH EVERY MORNING FOR 15 DAYS MAXIMUM DAILY DOSE = 1 SOLD: 01/29/2020 [facility] 2 mg 01/26/2020 12:00:00 AM EDT tablet 30 TAKE ONE TABLET BY MOUTH AT BEDTIME TAKE ONE TABLET BY MOUTH AT BEDTIME SOLD: 01/26/2020 [facility] Clonidine Hydrochloride 0.1 MG Oral Tablet CLONIDINE HCL 01/26/2020 12:00:00 AM EDT tablet 90 TAKE ONE TABLET BY MOUTH THR EE TIMES A DAY NEEDED TAKE ONE TABLET BY MOUTH THREE TIMES A DAY NEEDED SOLD: 01/26/2020 [facility] 12.5 mg 01/21/2020 12:00:00 AM EDT tablet,ext release mult iphase 30 TAKE ONE TABLET BY MOUTH AT BEDTIME MAXIMUM DAILY DOSE = 1 TAKE ONE TABLET BY MOUTH AT BEDTIME MAXIMUM DAILY DOSE = 1 SOLD: 01/23/2020 [facility] 2 mg 01/20/2020 12:00:00 AM EDT tablet 7 TAKE ONE TABLET BY MOUTH AT BEDTIME FOR 7 DAYS TAKE ONE TABLET BY MOUTH AT BEDTIME FOR 7 DAYS SOLD: 01/20/2020 [facility] Clonidine Hydrochloride 0.1 MG Oral Tablet CLONIDINE HCL 01/20/2020 12:00:00 AM EDT tablet 21 TAKE ONE TABLET BY MOUTH THR EE TIMES A DAY NEEDED FOR 7 DAYS TAKE ONE TABLET BY MOUTH THREE TIMES A DAY NEEDED FOR 7 DAYS SOLD: 01/20/2020 [facility] 2 mg 01/14/2020 12:00:00 AM EDT tablet 90 TAKE ONE TABLET BY MOUTH THREE TIMES A DAY MAXIMUM DAILY DOSE = 3 TAKE ONE TABLET BY MOUTH THREE TIMES A D AY MAXIMUM DAILY DOSE = 3 SOLD: 01/15/2020 [facility] 24 HR Bupropion Hydrochloride 300 MG Extended Release Oral T ablet BUPROPION HCL 01/14/2020 12:00:00 AM EDT tablet extended release 24 hr 30 TAKE ONE TABLET BY MOUTH EVERY MORNING TAKE ONE TABLET BY MOUTH EVERY MORNING SOLD: 01/15/2020 [facility] 12.5 mg 12/28/2019 12:00:00 AM EDT tablet,ext release mult iphase 30 TAKE ONE TABLET BY MOUTH AT BEDTIME NEEDED MAXIMUM DAILY DOSE = 1 TAKE ONE TABLET BY MOUTH AT BEDTIME NEEDED MAXIMUM DAILY DOSE = 1 SOLD: 12/31/2019 [facility] quetiapine 50 MG Oral Tablet QUETIAPINE FUMARATE 12/24/2019 12:0 0:00 AM EDT tablet 90 TAKE ONE TABLET BY MOUTH THREE T IMES A DAY TAKE ONE TABLET BY MOUTH THREE TIMES A DAY SOLD: 02/21/2020 [facility] quetiapine 200 MG Oral Tablet QUETIAPINE FUMARATE 12/24/2019 12: 00:00 AM EDT tablet 30 TAKE ONE TABLET BY MOUTH AT BEDT ELANA TAKE ONE TABLET BY MOUTH AT BEDTIME SOLD: 12/26/2019 [facility] 1,250 mcg (50,000 unit) 12/24/2019 12:00:00 AM EDT capsule 4 TAKE ONE CAPSULE BY MOUTH ONCE A WEEK TAKE ONE CAPSULE BY MOUTH ONCE A WEEK SOLD: 12/26/2019 [facility] quetiapine 200 MG Oral Tablet QUETIAPINE FUMARATE 12/24/2019 12: 00:00 AM EDT tablet 30 TAKE ONE TABLET BY MOUTH AT BEDT ELANA TAKE ONE TABLET BY MOUTH AT BEDTIME SOLD: 02/21/2020 [facility] quetiapine 50 MG Oral Tablet QUETIAPINE FUMARATE 12/24/2019 12:0 0:00 AM EDT tablet 90 TAKE ONE TABLET BY MOUTH THREE T IMES A DAY TAKE ONE TABLET BY MOUTH THREE TIMES A DAY SOLD: 01/23/2020 [facility] quetiapine 50 MG Oral Tablet QUETIAPINE FUMARATE 12/24/2019 12:0 0:00 AM EDT tablet 90 TAKE ONE TABLET BY MOUTH THREE T IMES A DAY TAKE ONE TABLET BY MOUTH THREE TIMES A DAY SOLD: 12/26/2019 [facility] quetiapine 200 MG Oral Tablet QUETIAPINE FUMARATE 12/24/2019 12: 00:00 AM EDT tablet 30 TAKE ONE TABLET BY MOUTH AT BEDT ELANA TAKE ONE TABLET BY MOUTH AT BEDTIME SOLD: 01/23/2020 [facility] 1,250 mcg (50,000 unit) 12/24/2019 12:00:00 AM EDT capsule 4 TAKE ONE CAPSULE BY MOUTH ONCE A WEEK TAKE ONE CAPSULE BY MOUTH ONCE A WEEK SOLD: 04/22/2020 [facility] quetiapine 100 MG Oral Tablet QUETIAPINE FUMARATE 12/10/2019 12: 00:00 AM EDT tablet 30 TAKE ONE TABLET BY MOUTH EVERY D AY AT BEDTIME TAKE ONE TABLET BY MOUTH EVERY DAY AT BEDTIME SOLD: 12/11/2019 [facility] 25 mg 12/09/2019 12:00:00 AM EDT tablet 30 TAKE ONE TABLET BY MOUTH EVERY DAY TAKE ONE TABLET BY MOUTH EVERY DAY SOLD: 12/11/2019 [facility] 150 mg 12/09/2019 12:00:00 AM EDT tablet sustained-releas e 12 hr 30 TAKE ONE TABLET BY MOUTH EVERY MORNING TAKE ONE TABLET BY MOUTH EVERY MORNING SOLD: 12/11/2019 [facility] 2 mg 11/29/2019 12:00:00 AM EDT tablet 90 TAKE ONE TABLET BY MOUTH THREE TIMES A DAY MAXIMUM DAILY DOSE = 3 TAKE ONE TABLET BY MOUTH THREE TIMES A D AY MAXIMUM DAILY DOSE = 3 SOLD: 11/29/2019 [facility] quetiapine 50 MG Oral Tablet QUETIAPINE FUMARATE 11/29/2019 12:0 0:00 AM EDT tablet 30 TAKE ONE TABLET BY MOUTH AT BEDT ELANA TAKE ONE TABLET BY MOUTH AT BEDTIME SOLD: 11/29/2019 [facility] 12.5 mg 11/29/2019 12:00:00 AM EDT tablet,ext release mult iphase 30 TAKE ONE TABLET BY MOUTH AT BEDTIME NEEDED MAXIMUM DAILY DOSE = 1 TAKE ONE TABLET BY MOUTH AT BEDTIME NEEDED MAXIMUM DAILY DOSE = 1 SOLD: 11/29/2019 [facility] 150 mg 11/12/2019 12:00:00 AM EDT tablet sustained-releas e 12 hr 30 TAKE ONE TABLET BY MOUTH EVERY MORNING TAKE ONE TABLET BY MOUTH EVERY MORNING SOLD: 11/12/2019 [facility] 12.5 mg 10/28/2019 12:00:00 AM EDT tablet,ext release mult iphase 30 TAKE ONE TABLET BY MOUTH AT BEDTIME NEEDED MAXIMUM DAILY DOSE = 1 TAKE ONE TABLET BY MOUTH AT BEDTIME NEEDED MAXIMUM DAILY DOSE = 1 SOLD: 10/31/2019 [facility] 2 mg 10/21/2019 12:00:00 AM EDT tablet 90 TAKE ONE TABLET BY MOUTH THREE TIMES A DAY TAKE ONE TABLET BY MOUTH THREE TIMES A DAY SOLD: 10/25/2019 [facility] 2 mg 10/20/2019 12:00:00 AM EDT tablet 30 TAKE 1 TABLET BY MOUTH EVERY MORNING AND 2 TABLETS IN THE EVENING TAKE 1 TABLET BY MOUTH EVERY MORNING AND 2 TABLETS IN THE EVENING SOLD: 10/20/2019 [facility] 100 mg 10/20/2019 12:00:00 AM EDT tablet 15 TAKE ONE TABLET BY MOUTH EVERY DAY NEEDED TAKE ONE TABLET BY MOUTH EVERY DAY NEEDED SOLD: 10/20/2019 [facility] 12.5 mg 09/28/2019 12:00:00 AM EDT tablet,ext release mult iphase 30 TAKE ONE TABLET BY MOUTH AT BEDTIME NEEDED MAXIMUM DAILY DOSE = 1 TAKE ONE TABLET BY MOUTH AT BEDTIME NEEDED MAXIMUM DAILY DOSE = 1 SOLD: 09/29/2019 [facility] 20 mg 09/15/2019 12:00:00 AM EDT capsule 60 TAKE TWO CAPSULES BY MOUTH EVERY DAY TAKE TWO CAPSULES BY MOUTH EVERY DAY SOLD: 09/16/2019 [facility] 2 mg 09/15/2019 12:00:00 AM EDT tablet 90 TAKE ONE TABLET BY MOUTH THREE TIMES A DAY MAXIMUM DAILY DOSE = 3 TAKE ONE TABLET BY MOUTH THREE TIMES A D AY MAXIMUM DAILY DOSE = 3 SOLD: 09/16/2019 [facility] 2 mg 08/28/2019 12:00:00 AM EDT tablet 90 TAKE ONE TABLET BY MOUTH EVERY MORNING AND TAKE TWO TABLETS BY MOUTH EVERY EVENING TAKE ONE TABLET BY MOUTH EVERY MORNING AND TAKE TWO TABLETS BY MOUTH EVERY EVENING SOLD: 08/30/2019 [facility] 12.5 mg 08/27/2019 12:00:00 AM EDT tablet,ext release mult iphase 30 TAKE ONE TABLET BY MOUTH AT BEDTIME NEEDED MAXIMUM DAILY DOSE = 1 TAKE ONE TABLET BY MOUTH AT BEDTIME NEEDED MAXIMUM DAILY DOSE = 1 SOLD: 08/30/2019 [facility] Zolpidem tartrate 12.5 MG Extended Release Oral Tablet Zolpi dem Tartrate ER 08/22/2019 12:00:00 AM EDT ORAL active [facility] ([facility] Oxycodone Hydrochloride 5 MG Oral Tablet Oxycodone HCL 08/22/2019 12:00:00 AM EDT ORAL completed [facility] ([facility] 5 mg 08/22/2019 12:00:00 AM EDT tablet 30 TAKE ONE TO TWO TABLETS BY MOUTH EVERY 4 HOURS NEEDED FOR PAIN MAXIMUM DAILY DOSE = 6 TAKE ONE TO TWO TABLETS BY MOUTH EVERY 4 HOURS NEEDED FOR PAIN MAXIMUM DAILY DOSE = 6 SOLD: 08/22/2019 [facility] 2 mg 07/30/2019 12:00:00 AM EDT tablet 90 TAKE ONE TABLET BY MOUTH THREE TIMES A DAY MAXIMUM DAILY DOSE = THREE TABLETS TAKE ONE TABLET BY MOUTH THREE TIMES A DAY MAXIMUM DAILY DOSE = THREE TABLETS SOLD: 07/30/2019 [facility] 12.5 mg 07/30/2019 12:00:00 AM EDT tablet,ext release mult iphase 30 TAKE ONE TABLET BY MOUTH AT BEDTIME NEEDED MAXIMUM DAILY DOSE = ONE TABLET TAKE ONE TABLET BY MOUTH AT BEDTIME NEEDED MAXIMUM DAILY DOSE = ONE TABLET SOLD: 07/30/2019 [facility] 20 mg 07/30/2019 12:00:00 AM EDT capsule 60 TAKE TWO CAPSULES BY MOUTH EVERY DAY TAKE TWO CAPSULES BY MOUTH EVERY DAY SOLD: 07/30/2019 [facility] 20 mg 07/28/2019 12:00:00 AM EDT tablet 30 TAKE ONE TABLET BY MOUTH AT BEDTIME NEEDED MAXIMUM DAILY DOSE = 1 TAKE ONE TABLET BY MOUTH AT BEDTIME NEEDED MAXIMUM DAILY DOSE = 1 SOLD: 07/28/2019 [facility] quetiapine 100 MG Oral Tablet QUETIAPINE FUMARATE 07/19/2019 12: 00:00 AM EDT tablet 15 TAKE ONE TABLET BY MOUTH AT BEDT ELANA TAKE ONE TABLET BY MOUTH AT BEDTIME SOLD: 07/19/2019 [facility] 10 mg 06/30/2019 12:00:00 AM EDT capsule 30 TAKE ONE CAPSULE BY MOUTH AT BEDTIME NEEDED MAXIMUM DAILY DOSE = 1 TAKE ONE CAPSULE BY MOUTH AT BEDTIME NEEDED MAXIMUM DAILY DOSE = 1 SOLD: 07/01/2019 [facility] 20 mg 06/30/2019 12:00:00 AM EDT capsule 60 TAKE TWO CAPSULES BY MOUTH EVERY DAY TAKE TWO CAPSULES BY MOUTH EVERY DAY SOLD: 07/01/2019 [facility] 27 mg 06/29/2019 12:00:00 AM EDT tablet extended release 24hr 30 TAKE ONE TABLET BY MOUTH EVERY MORNING MAXIMUM DAILY DOSE = 1 TAKE ONE TABLET BY MOUTH EVERY MORNING MAXIMUM DAILY DOSE = 1 SOLD: 06/30/2019 [facility] 2 mg 06/29/2019 12:00:00 AM EDT tablet 90 TAKE ONE TABLET BY MOUTH THREE TIMES A DAY MAXIMUM DAILY DOSE = 3 TAKE ONE TABLET BY MOUTH THREE TIMES A D AY MAXIMUM DAILY DOSE = 3 SOLD: 06/30/2019 [facility] 27 mg 05/26/2019 12:00:00 AM EST tablet extended release 24hr 30 TAKE ONE TABLET BY MOUTH EVERY MORNING MAXIMUM DAILY DOSE = 1 TAKE ONE TABLET BY MOUTH EVERY MORNING MAXIMUM DAILY DOSE = 1 SOLD: 05/26/2019 [facility] 20 mg 05/26/2019 12:00:00 AM EST tablet 60 TAKE ONE TABLET BY MOUTH TWICE A DAY ON AN EMPTY STOMACH TAKE ONE TABLET BY MOUTH TWICE A DAY ON AN EMPTY STOMACH SOLD: 05/26/2019 [facility] 2 mg 05/26/2019 12:00:00 AM EST tablet 90 TAKE ONE TABLET BY MOUTH THREE TIMES A DAY MAXIMUM DAILY DOSE = 3 TAKE ONE TABLET BY MOUTH THREE TIMES A D AY MAXIMUM DAILY DOSE = 3 SOLD: 05/26/2019 [facility] 3 mg 05/26/2019 12:00:00 AM EST tablet 30 TAKE ONE TABLET BY MOUTH AT BEDTIME MAXIMUM DAILY DOSE = 1 TAKE ONE TABLET BY MOUTH AT BEDTIME MAXI MUM DAILY DOSE = 1 SOLD: 05/26/2019 [facility] Insurance Providers Payer name Policy type / Coverage type Policy ID Covered green party ID Covered green party's relationship to mendez Policy Mendez Plan Information [facility] [id number] SP [id number] FAMILY HEALTH PLAN [id number] S [id number] [facility] HE[facility] [id number] S [id number] [facility] [id number] SP [id number] [facility] [id number] S [id number] [place] [employer] [id number] Self 00 [id number] [place] [employer] [id number] Self 00 [id number] [place] [employer] [id number] Self 00 [id number] [place] [employer] [id number] Self 00 [id number] [place] [employer] [id number] Self 00 [id number] [facility] [id number] SP [id number] [place] [employer] [id number] Self 00 [id number] [place] [employer] [id number] Self 00 [id number] [place] [employer] [id number] Self 00 [id number] [place] [employer] [id number] Self 00 [id number] [place] [employer] [id number] Self 00 [id number] [place] [employer] [id number] Self 00 [id number] [place] [employer] [id number] Self 00 [id number] [place] [employer] [id number] Self 00 [id number] MEDICARE [id number] SP [id number] [facility] [id number] SP [id number] [place] [employer] [id number] Self 00 [id number] [place] [employer] [id number] Self 00 [id number] [facility] [id number] 18 [id number] [facility] [id number] Self 00 [id number] HEA [id number] 200 [facility] Commercial [id number] Self 00 [id number] [facility] Commercial [id number] Self 00 [id number] [facility] Commercial [id number] Self 00 [id number] [facility] U [id number] Se lf [id number] [facility] [id number] Self 00 [id number] [facility] [id number] Self 00 [id number] [facility] Commercial [id number] Self 00 [id number] [facility] [id number] SP [id number] 18 [id number] [facility] Commercial [id number] Self 00 [id number] [facility] F [id number] SELF [id number] [facility] [id number] SP [id number] [facility] F [id number] SELF [id number] [facility] Commercial Self [facility] Commercial Self [facility] Health Maintenance Organization (HMO) Self [facility] O [id number] S [id number] [facility] [id number] SP [id number] [facility] [id number] Sunitha [id number] Problems, Conditions, and Diagnoses Code Display Name Description Problem Type Effective Dates Data Source(s) G47.00 Insomnia, unspecified INSOMNIA, UNSPECIFIED Diagnosis 04/26/2020 08:50:00 AM [facility] F90.9 Attention-deficit hyperactivity disorder , unspecified type ATTENTION- DEFICIT HYPERACTIVITY DISORDER, UNSPECIF Diagnosis 04/26/2020 08:50:00 AM [facility] F41.0 Panic disorder [episodic paroxysmal anxi ety] PANIC DISORDER [EPISODIC PAROXYSMAL ANXIETY] Diagnosis 04/26/2020 08:50:00 AM [facility] F43.10 Post-traumatic stress disorder, unspecif ied POST-TRAUMATIC STRESS DISORDER, UNSPECIFIED Diagnosis 04/26/2020 08:50:00 AM [facility] F12.10 Cannabis abuse, uncomplicated CANNABIS ABUSE, UNCOMPLI CATED Diagnosis 03/30/2020 03:37:00 PM [facility] G89.21 Chronic pain due to trauma CHRONIC PAIN DUE TO TRAUMA Diagnosis 03/30/2020 03:37:00 PM [facility] F33.1 Major depressive disorder, recurrent, mo derate MAJOR DEPRESSIVE DISORDER, RECURRENT, MODERATE Diagnosis 03/30/2020 03:37:00 PM [facility] 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 Diagno sis 10/21/2019 10:00:00 AM [facility] R07.9 Chest pain, unspecified CHEST PAIN, UNSPECIFIED Diagno sis 07/20/2019 04:11:00 PM [facility] F41.9 Anxiety disorder, unspecified ANXIETY DISORDER, UNSPEC IFIED Diagnosis 07/20/2019 04:11:00 PM [facility] Surgeries/Procedures Procedure Description Date Indications Data Source(s) APPLICATION SHORT LEG CAST BELOW KNEE-TOE 08/26/2019 1 2:00:00 AM EDT [facility] ([facility] ) RADIOLOGIC EXAMINATION TIBIA & FIBULA 2 VIEWS 08/26/19 20 12:00:00 AM EDT [facility] ([facility] ) Debridement FX/Dislocation; Skin, Subcutan, Muscle & Bone 08/21/2019 12:00:00 AM EDT [facility] ([facility] ) CLTX TIBIAL SHAFT FX W/O MANIPULATION 08/21/2019 12:00 :00 AM EDT [facility] ([facility] ) Electrocardiogram Interpretation & Report Only 020 12:00:00 AM EDT [facility] ([facility]) Results ID Date Data Source [id number] 11/04/2019 01:17:00 PM EDT [facility] ([facility] Name Value Range Interpretation Code Description Data Candie rce(s) Supporting Document(s) Thyroxine (T4) free [Mass/volume] in Serum or Plasma 0.90 ng/dL 0.76- 1.46 [facility] Thyrotropin [Units/volume] in Serum or Plasma 1.010 uIU/ML 0.358-3.74 0 [facility] ID Date Data Source [id number] 11/04/2019 01:17:00 PM EDT [facility] ([facility] Name Value Range Interpretation Code Description Data Candie rce(s) Supporting Document(s) Triglycerides Level 139 mg/dL [facility] ([facility] Cholesterol Level 190 mg/dL [facility] HDL Cholesterol 37 mg/dL [facility] LDL Cholesterol 125 mg/dL [facility] Cholesterol Risk Ratio 5.135 [facility] Non-HDL-C 153 mg/dL [facility] ID Date Data Source [id number] 11/04/2019 01:17:00 PM EDT [facility] ([facility] Name Value Range Interpretation Code Description Data Herrick Campuse(s) Supporting Document(s) Glucose, Fasting 77 mg/dL 70-100 [facility] Creatinine For GFR 0.93 mg/dL 0.70-1.30 [facility] Blood Urea Nitrogen 5 mg/dL 7-18 [facility] Glomerular Filtration Rate Laboratory test result [facility] ([facility] <content>Units are mL/min/1.73 m2</content>
<content></content>
<content>Chronic Kidney Disease Staging per NKF:</content>
<content></content>
<content>Stage I & II GFR >=60 Normal to Mildly Decreased</content>
<content>Stage III GFR 30- 59 Moderately Decreased</content>
<content>Stage IV GFR 15-29 Severely Decreased</content>
<content>Stage V GFR <15 Very Little GFR Left</content>
<content>ESRD GFR <15 on HOT TOP LINER</content>
<content></content> Sodium Level 140 meq/L 136-145 [facility] Anion Gap 6 meq/L 8-16 [facility] Chloride Level 105 meq/L 98-107 [facility] Carbon Dioxide Level 29 meq/L 21-32 [facility] Potassium Serum 4.4 meq/L 3.5-5.1 [facility] Alt/SGPT 23 U/L 12-78 [facility] Ast/Sgot 17 U/L 7-37 [facility] Calcium Level 8.9 mg/dL 8.5-10.1 [facility] Alkaline Phosphatase 104 U/L 45-117 [facility] Total Protein 7.4 GM/DL 6.4-8.2 [facility] Bilirubin,Total 0.5 mg/dL 0.2-1.0 [facility] Albumin 3.9 GM/DL 3.2-5.2 [facility] Albumin/Globulin Ratio 1.1 [facility] ID Date Data Source [id number] 11/04/2019 01:17:00 PM EDT [facility] ([facility] Name Value Range Interpretation Code Description Data Candie rce(s) Supporting Document(s) White Blood Count 5.0 10 4.0-10.0 [facility] Red Blood Count 5.11 10 4.30-6.10 [facility] Hemoglobin 15.3 g/dL 13.5-17.5 [facility] Hematocrit 45.1 % 42.0-52.0 [facility] Mean Corpuscular Hemoglobin 29.9 pg 27.0-33.0 [facility] Red Cell Distribution Width 15.2 % 11.5-14.5 [facility] Mean Corpuscular Volume 88.3 fl 80.0-96.0 M [facility] ([facility] Mean Corpuscular HGB Conc 33.9 g/dL 32.0-36.5 [facility] Platelet Count, Automated 277 10 150-450 [facility] Lymph % 28.7 % 24.0-44.0 [facility] Neutrophils % 62.1 % 36.0-66.0 [facility] Eos % 0.0 % 0.0-3.0 [facility] Bowie % 8.4 % 0.0-5.0 [facility] Baso % 0.6 % 0.0-1.0 [facility] Immature Granulocyte % 0.2 % 0-3.0 [facility] Nucleated Red Blood Cell % 0.0 % 0-0 [facility] ([facility] Neutrophils # 3.1 10 1.5-8.5 [facility] Bowie # 0.4 10 0.0-0.8 [facility] Lymph # 1.4 10 1.5-5.0 [facility] Eos # 0.0 10 0.0-0.5 [facility] Baso # 0.0 10 0.0-0.2 [facility] ID Date Data Source [id number] 11/04/2019 01:11:00 PM EDT [facility] ([facility] Name Value Range Interpretation Code Description Data Candie rce(s) Supporting Document(s) Dehydroepiandrosterone sulfate (DHEA-S) [Mass/volume] in Serum or Plasma 114 ug/dL [facility] ([facility] This test was developed and its performa nce characteristics determined by [facility]. It has not been cleared or approved by the Food and Drug Administration. Reference Range: Adult Males (41 - 50y): 16 - 390 Performed at: RN - [facility] [address] [id number] Feed In Worker: Vivian Winn MD, Phone: [phone] Performed at: [facility] [address] [place] [id number] Feed In Worker: Soren Guillory MD, Phone: [phone] ID Date Data Source [id number] 11/04/2019 01:11:00 PM EDT [facility] ([facility] Name Value Range Interpretation Code Description Data Candie rce(s) Supporting Document(s) Testosterone Total For T&D 411.0 ng/dL 264-916 [facility] <content>Adult male reference interval i s based on a population of</content>
<content>healthy nonobese males (BMI <30) between 19 and 39 years</content>
<content>old. Caitlin, et.al. JCEM 2017,102;6498-0648. PMID:</content>
<content>[id number].</content>
<content></content> Testosterone Free (Direct) 12.1 pg/mL 6.8-21.5 [facility] ID Date Data Source [id number] 11/04/2019 01:11:00 PM EDT [facility] ([facility] Name Value Range Interpretation Code Description Data Candie rce(s) Supporting Document(s) PSA Total 0.4 ng/mL 0.0-4.0 [facility] Regine ECLIA methodology. . According to the [employer], Serum PSA should decrease and remain at undetectable levels after radical prostatectomy. The AUA defines biochemical recurrence as an initial PSA value 0.2 ng/mL or greater followed by a subsequent confirmatory PSA value 0.2 ng/mL or greater. Values obtained with different assay methods or kits cannot be used interchangeably. Results cannot be interpreted as absolute evidence of the presence or absence of malignant disease. PSA Comment Laboratory test result [facility] ([facility] . The percent free PSA is performed on a reflex basis only when the total PSA is between 4.0 and 10.0 ng/mL. ID Date Data Source [id number] 11/04/2019 01:11:00 PM EDT [facility] ([facility] Name Value Range Interpretation Code Description Data Candie rce(s) Supporting Document(s) Estradiol (E2) [Mass/volume] in Serum or Plasma 32.2 pg/mL [facility] <content>NORMAL MENSTRUATING FEMALES:</content>
<content></content>
<content>FOLLICULAR PHASE 19.5-144.2 PG/ML</content>
<content>MID CYCLE PEAK 63.9- 356.7 PG/ML</content>
<content>LUTEAL PHASE 55.8-214.2 PG/ML</content>
<content></content>
<content>POST MENOPAUSAL FEMALES <32.2 PG/ML</content>
<content>(UNTREATED)</content>
<content></content>
<content>THE eESTRADIOL2 ASSAY IS PERFORMED ON THE [employer] BY</content>
<content>CHEMILUMINESCENCE AND SHOULD NOT BE COMPARED INTERCHANGEABLY</content>
<content>WITH OTHER METHODS.</content>
<content></content>
<content>Falsely elevated Estradiol test results can be seen in</content>
<content>patients treated with fulvestrant (Faslodex). Estradiol</content>
<content>concentrations in fulvestrant treated women should only be</content>
<content>measured by LC- MS (Liquid Chromatography-Mass Spectrometry).</content>
<content></content> ID Date Data Source [id number] 11/04/2019 01:11:00 PM EDT [facility] ([facility] Name Value Range Interpretation Code Description Data Candie rce(s) Supporting Document(s) White Blood Count 5.2 10 4.0-10.0 [facility] Red Blood Count 5.16 10 4.30-6.10 [facility] Hematocrit 45.4 % 42.0-52.0 [facility] Hemoglobin 15.3 g/dL 13.5-17.5 [facility] Mean Corpuscular Hemoglobin 29.7 pg 27.0-33.0 [facility] Mean Corpuscular HGB Conc 33.7 g/dL 32.0-36.5 [facility] Mean Corpuscular Volume 88.0 fl 80.0-96.0 M [facility] ([facility] Platelet Count, Automated 284 10 150-450 [facility] Neutrophils % 62.8 % 36.0-66.0 [facility] Red Cell Distribution Width 15.2 % 11.5-14.5 [facility] Lymph % 28.3 % 24.0-44.0 [facility] Eos % 0.0 % 0.0-3.0 [facility] Bowie % 8.1 % 0.0-5.0 [facility] Baso % 0.6 % 0.0-1.0 [facility] Immature Granulocyte % 0.2 % 0-3.0 [facility] Nucleated Red Blood Cell % 0.0 % 0-0 [facility] Neutrophils # 3.2 10 1.5-8.5 [facility] Lymph # 1.5 10 1.5-5.0 [facility] Bowie # 0.4 10 0.0-0.8 [facility] Eos # 0.0 10 0.0-0.5 [facility] Baso # 0.0 10 0.0-0.2 [facility] ID Date Data Source [id number] 08/21/2019 11:45:00 AM EDT [facility] ([facility] Name Value Range Interpretation Code Description Data Candie rce(s) Supporting Document(s) Laboratory test finding (navigational concept) Laboratory test result [facility] ([facility] A false negative result may occur if a s pecimen is improperly collected, transported or handled. False negative results may also occur if inadequate numbers of organisms are present in the specimen. As with any molecular test, mutations within the target regions of Xpert Xpress SARS-CoV-2 could affect primer and/or probe binding resulting in failure to detect the presence of virus. This test cannot rule out diseases caused by other bacterial or viral pathogens. DISCLAIMER: Testing was performed using the [employer] SARS-CoV-2 test. This test was developed and its performance characteristics determined by [employer]. This test has not been FDA cleared or approved. This test has been authorized by FDA under an Emergency Use Authorization (EUA). This test is only authorized for the duration of time the declaration that circumstances exist justifying the authorization of the emergency use of in vitro diagnostic tests for detection of SARS-CoV-2 virus and/or diagnosis of COVID-19 infection under section 564(b)(1) of the Act, 21 U.S.C. 360bbb-3(b)(1), unless the authorization is terminated or revoked sooner. ID Date Data Source [id number] 07/19/2019 08:04:00 AM EDT [facility] DATE OF EXAM: 07/19/2019CT BRAIN WITHOUT CONTRAST CLINICAL STATEMENT: Memory loss. TECHNIQUE: CT of the head was performed using 5 mm collimation from the base of skull to the vertex without contrast. COMPARISON: 09/27/2017 FINDINGS: The ventricles and sulci are within normal limits. There is no acute parenchymal hemorrhage, mass, mass-effect or midline shift. There is no extra-axial fluid collection. There is no loss of mancia-white matter differentiation to suggest acute territorial infarct. The calvarium is intact. The visualized paranasal sinuses and orbits appear unremarkable. IMPRESSION: No evidence of acute intracranial pathology. Professional interpretation performed at [facility] .End of diagnostic report for accession: [id number] Interpreted: Joe Lopez MDTranscribed: 07/19/2019 08:01 AMSigned: 07/19/2019 08:04 AM Joe Lopez MD [facility] ACC # [id number] BILL # [id number] Name Value Range Interpretation Code Description Data Candie rce(s) Supporting Document(s) ID Date Data Source [id number] 07/19/2019 08:33:00 AM EDT [facility] DATE OF EXAM: 07/19/2019CHEST RADIOGRAPH , SINGLE VIEW INDICATION: CHEST PAIN TECHNIQUE: Upright AP Portable view of the chest. COMPARISON: 06/14/2017. FINDINGS: The chest wall and soft tissues are normal. Degenerative changes are seen throughout the spine. There is no evidence of pleural disease. Lung volumes are diminished. There are hazy perihilar opacities. The heart and mediastinal contours are unchanged.. IMPRESSION: Diminished lung volumes with mild perihilar opacities. This could represent atelectasis or pulmonary edema. Professional interpretation performed at [facility] [phone].End of diagnostic report for accession: [id number] Interpreted: Davis Ortizscribed: 07/19/2019 08:31 AMSigned: 07/19/2019 08:33 AM Davsi Ortiz DO [facility] # [id number] BILL # [id number] Name Value Range Interpretation Code Description Data Candie rce(s) Supporting Document(s) ID Date Data Source [id number] 07/19/2019 05:56:41 AM EDT [facility] Name Value Range Interpretation Code Description Data Candie rce(s) Supporting Document(s) MUSE EKG PDF encoded Sergey sumner IYHFMb1tMkREEuGgt0ZeNmNjJBAeXT1tkix4V5O6xKHuL6VvdQDvf6awH5UnQ0SuFIEnDLHMTX9IzBYc jb2 [file] nrdE6HA3GnSmMXBAMAWDWosk3NWsMQQVLIJZWNKqHQ 9SI5XZXMMnWDMe7g0TFSC3GbkyVZVA3g56ScYtcep2K2xm1mijhhMwBAgJdiq8spepmtFTFzWOeLU3Cw JEXH0PkAG1s4QWXNgg4Z2ZYyPpQ1yBhMSO8x+mDTB5s+5KNTng17izZhc48lpBvTgKZUnMzJgSwAjbz5 pstME0s3HRReegpPces4XmjdM7Jh8RV7mZShWRLnRe GMBRGi3gWpe+m3RT5qrrBTlYytLK+t2mwwkLkBk629Irl8sslWja8eMMb6qeFekhcl5rzstl6j1uhKxo 8sBPu6ieChk3X2xwt9aJ+560L6ItXO7JvbMVv8EZX1XCqdAZ+puG3H8fNanHpCB5iiXbTVrlUIXJcev2 QIuFx51SFnehm3OKb9Wu4IApNtFfCfyRkPD/mEIBJE Ln/g3p0f23Yxk/IJlVO2/1rqQZxNMbmPUgB9U5QUn3tvbxNCHBHcHSoLHLK3GK29IILFjejG/InCeizy 7dEiZctzQ0TvMQZ2xGYQqUkUESNORRUUDVAXIQErJ4LnGG0u4GOyDuWC7CgGra4plGzbexeehujrdOhX WUSEiBDZRMgPyBOVPFHJE/HphoZo1lqFv8XMSWTlxi WPpeOWVY+lt/RQZArcpKh5TJnPrdFs5ChUqr4RU4pcQnxLP3qmgsr7gqkarzh5s7WGrIO4iwNd3zJGpy uqoErWRCSlhVR2Vlr1KCFgINksi6p/JSPbpFX23jW959//fFAZd//Hf/6P//vzEBzu6kwP//l///d/+7 /Wf//3//7P/+e//+f//E8Cf/Ro//d//SfPuGT7//1P QoQK0wa/BHLa0C/oF/QCvUC/od/Qn58+mary anne/vd9s60/vp9o/dXGvnyyk4c0/qu0//am/51FsInnR1j5d 7r7b6J33O3f/+nqz3ZMHtxDjwh1ft2YoW5dw3/ZPb9X+2fuoV/unP9X+2fvsbv/0W7L9s/eR0v/sfSo9 9I8i/k1Foto//Ur//Pht21k80T44i9a0s/b+TXdK/2 kd9t9aS/oL/P44dqgET/oF/YJeUr+r/dPXs/uSskyQp5B/6Yr8Jq9bjg2puttYXQUN6xrEtSFg1K/o7+ jP86AN/YJ+QS/QC/Qb+a27yc1Yg1Nf7VW98Y7s59GfT7mQ1D6y81Qbhp9YuiA9VslJ4SqnP2Evmk8ThG z1FgKt9YEb13N8p8/0ErFovg14TQ/QX+jq3N315MC+ Qb+me6byv66Zak85Aye52Gwy59Ux8asuwq/h+Rqer+Z1Bv2v8nweub/j+Tqer+Z7Je7q7/o50JKX71FP Ya/EXpu3Qtmx2qrgwwtzuTkbr1Wkf23NxkH4EtjW1XvyI2HidY0MjFT7H/WA8I6CL2J1PP/B9dR3RWkB 9gbsDdgbsPc+Hq5nV0zJrg16zHrgCO0ueS8E8/M9+H 9Mf9Pvyd2R7o6Ux0Yjbz5T4e8Gd1TfQRmyxBy4nB/ffeZJkb7/IJjL32H7T2ZewYidFs2d1/v71N/n9/ cpfX1/S1/s25Br646U0iI4Sh/aFt68p5TuUjdgS+wd5Sb8lh+f7f1qenyBRcyBIkIQC65ztx/1zYJph1 ykDkHtj5/kgZA/6dQ9aFvrPf3Vr3Gaetqv+5yf19Ga EzYzupE2mwe+Z247tfHd2Xq80rgrsgcsSeUaov3Hy155w3ic+FU90+LG7yxRhk6D9nzjT5Seu6HdOd4+ GyPnhlzO5ob++W9I3WejwsBeXE3149cGx3uq7W/oF/BYs3Y1BHR/PqXP/vy2oT/QH+gV+rT31G+mvW8b eofeoQ/oA/oL/O521en3Yc0ForEn7VOsW6pBK6sfis 5oQ6/QK/DFoFYe6Nt57Gn1Mv+9+ZH1zrI1LS3lnZ5Fh+icvpmp1ED4XVEdj0S1k8TJh1nAf0LLwke6Dl 2e8L7ucAu1ITemy/wE9m325gbA8Tx0D3/XG/H5+5uo3/+9v1Lvi+w63CNyn0mdwddvjU6Sroi+tXsS+9 TRmGN2MnM5J5+GGqGEQ9H3b9tjwR682EqhfB90nQbJ ya/s1u/8nq+Rl5PpVbin+AMMS8LvmG/ze77W9/H6bq182rf+Xn0s+ZXXs0t+9d7n7/lG+gq4EuwM/Kps B78Sn++v+ZnQwBkV01Rq8pPK14y76wbZXjAVH2heagC23pjJx2hoA/qA/kKP/xbcK7H8tC/Aa09XjCI9 A/AT9C7VB6F5WP/xs52p1KO4ZQ/S8mI1OUS+B/pz3N Hf50Eb+bH2vz0cV+b65Oj2uY/ume/Unfl+bnn20nn4Kw/QO/Of76tpRq1P/f2+v0wRpcviSXDwlVe22+ HqqmWtk2i8R/G1N/Qb+mCpgE62gefAxE5l3s6+rkSblgDtVRlXge1yb0545r9tI7HEdw+i9PeL2+ziV2 8b+xB7l9ab/CtKLwRGSZ9zan/lWLorfrVKn/GrVfoc b3W6AC78X+NXUn+C3guoncmgPvceY3Ax+NXu+GHKid5ZYyiKY6zoF72adm/nxdDBC2FgMU8RwApkz29m Wq2ILdy86wNIYsnXq+cm/gjll4awx5O/2StP/k4Z4pjv4Fm2Zv6J53T8ez4zM3E7tTa/tLds3M/4Yae9 7dn0ad84vF+3fN/IOGYpGazz2t8wor6jp/Sfnf25+t gXRx9UcmTqMnto+u22j5/n0Yi3/2+j20WLrCXOOmpe5D3lt7iRCk6c31IRnbmxSRQUD4jdagbSTQAR23 8+Mz7vM+TlJmv3Xz9R/gTb0Lw5Tb5T59M82TJ9SA+hn+/R6hjlgL6tB5Hh4/p5osxEu+AB8j8Wa+gP9A z4uD2sU+gNeofeoQ/oA/oL/L586dd3Hi2KOcKy2APB a7DXYK/BXsPzNTxfw/M1PF/W4gC5H2RaDNsho/M1PF/I14H9Y2zdqLou0HxIzzURsin74Vg/2uBXG/xq o49uo34Ap7ElXvwHOp/a4Fcb/CyHB38rwl5+tcGvNvjVBr/a4Fcb/NqPD49xkd2+tcGvNvjVBr/a4Fcb /EfPY35psk6+iVA4BgmI1Kgb13L9B/Ie3Xhz74F8H/ Hi3Vpb38J5O/Dl4Woc38B4K/Rz8Izo98I1Z/woolx9G+11XkwJ6Vd3qQ9k27Im1J/6A5zZIvH57O86p0 6hD+gD+uw23X5gx7YsXUnN3D0sg2ZdBHaS4V7lz61004P42jo6eJxsHvf0XZpuh9ta0lh8BN2g5jEp94 f1N/Xi9UTqKt71/zfhtroD03H+Qb+gn/XBU/Gr5Len 9ruLQ13Jf3u81+NLC4TlbDqedRGzGrejD2fi/b0/sQXe9If2B66dC83eBdbch7t+1fec/Hvc4oesOFm4 YNrjh+PJK8y9eJw+cPaBXqHXjy+d4le72/T202dFEiDe1wjXt2kFhKIxdf778W7W+nUBkb2l/T1n4s+n +QXHigLLDhPBU7GGF5JYE7NCI55KdslpqMGtM9/ftw 01k8NF9/Vq4ynK4bcBb6k7eq+dW602gxMe9I/oBXqBfkM/3kosE375prYU0CJ/Y/jez30bj+xG8tszIS /rvP4xyyfhfmNrUqdc0oiHThsz+qHU9puI388qk2pvs44gjiBhgwUGy51jjAu3l3xkAdE4A8IfunpN4L MsWFQh0n/568/QhhGV06dd5m5wuNsI9s/xmf/meYD3 dg90Sv6z3jwpj06kYfcxkgSbje0d9/ASwmbfZrPSl6EOL0w7p8/Q3o9JvhDlpmjExW+c7V+01pm000cs vfrtN9jRcic+5vd8ve/o15h15r9/nq/Sp8D3xiQEfwa/vc/gXmmcR9PujzKl+mHxq+mrDY01QgmtY9B/ m4wVbGZs7Oq6Xj7G14KN7XOsONNNW/tbxE6k7XwCug FPbo341AU/OuBXB/mssO9n7BvQpqQPvh738LO/OuBXB/tohY9x5GkDrmZMzzS8Yr+J1+om9Ke5HtYQpG C/od/x98OopzHQD/U2dcoqQui6JD/QO/ITcPuwPH2yLzdKxZs0pClydjoV3Xr5bc8E/aOgbATM7ht0R/ oN/YH+nU6AUO50xgQ213ibde+24K9923R7EEPSTT39 tqG/33ioxa+AB0jQ33WdF2hYcMbViF6268eBq7lt3J+U27lDBVu74Vq7S/plw3heo+m3lI754IwXlXx8 O6aX+/Y2gedt9ofUwBK/8wHb8WRh+VC84woWTpebGCd+9bahX1/cTyt+eeGZC72gQe+z1n8l1dg64kwb ehniA65X+/I6zbwd6ap5eoefM/6Wm/M7Nte67q+2Q+ /QB/QB/YX+zu+f2U+Ye/Df+vrVp9cr+K8tB/Ye+eJ7uf3+9efZ4+vl89V18/58ardW84V01RsSWZ863a Ht3Hb/9sOD/nxi+vmJ6f/vzpjc6jqeisl72jccGj/2rKkEou2urorughH3YuzvnvW74ubcWUr3Zy8NU/ MWbQIm7Mc6Ox0UK0Ey9IQ+Y8ObhB9R8SzE/MxLy0DL uiZlG6N9NfE/EoQyVXTdNvaFPu1NmQ8I5IkG/RxNz5XJJGlpqfPqS235bEphfievlTyoI+KSohpUVs2g gZ3c1ohC+GDhemVVNgsgQ6f3iJW+tAddOyKOsbuKJs0gjM0d4pnT+ABtmdWVLmmtH7p4dCZ+pYhfKeJX tgkKDr7zbM4i9deM+JUifqWIXyniVwp+ztPACp7a2F cKfqXgVwp+tdZSLu1l6YxKrmDvBlh+nlEHBc9q0GpRalYbVdw+rxIYBf4g0JsNhsGVUclzQ5i9wHZ+ZY cpSkSToleQLH9pwX0F9zkS+GOmmpXES1oc4WW1Ps7jX0Tx2Z/o5/21Ne+puGp6Nl+6JcE7DoQ8BT+h39 DP/jpbM9+3VfztuDu4Ic5G5/gdx+/D3gV7F+xdsFdg r+M6Pa5yWG+50siG4By/lRW/ym+MRz4YcwohcBWn+PBRkHOYXm4KJh34leR0/C3vuYduFyQ2/Qv9nb+v +JV2+5fwUoNu7zwqCr/t4zlN3ulLzUHMfdb3X/1GHqHW0Q0/rpl7AGtmjolq2M2b//AA40H5qD/fsFof LP/X+qA6J82iI/qV5PBRk8pJ+ZFhfdDOfH/tzPzXKn 2GpBQ25703k23nG/zKEL+i33T29BB/ys7Ec+xMPMfOxHNMZ3+j8QP8nt8HN7VM5Yg83R3zQolKFD/0Cr 5Sr5Mb2X96Id/QB/QX+eyBmzm07hxBlcP/oBfoBfoN/Yb+QH+gV+hhb/Er6/Q0b1c5zrVoddWIc88f/m t2I+1il+dbs/767N/p9h28hIq+eZT5nP+yH78 6m/CJ9X+zVOifuf3/tZ+ItHRun7kjJsmNf+Matc524wgn25qc4U7vq7+vniaFb/q/370YjDlV7+qGJpV /Gp1W/8/dw5Hy8HrntJ4tVm/qZtBNpIKZ10KGh49NWHLmr2/dK2Nek1hwb0roiNiH7CMY8j7qm/yvGb4 Qko9VkMwEPzheB+1ct0I/2rVNd/lj8VQxwn/KnPkVv hX93/c7HoCaE9rmciXE5zK4H/qntO/Yjvyw8W11B0EAkfSw5cBa9/pq960Fd57W9esy7xqJ3nvA2aaO3 kuJ0KhrlcecB4oeasoMqzTvd85wt8f+hjPB+/vz8Fr7C/o+/3rT79//Xmg7/375cy1LxeH+wQ5vB4r+u 5dDcddd1/l8K8c/dAea6PeY+fVK6DhEqu2My55w129 Qcf+oGN/0LE/7NkkeQoHRdUPPiiHXc9B31ut8IoqdVy5Vg5J3CgXozi9IDQvZ+fS+IXe9brGWx29Obd1 euXa71/CX2wYMwFP6NN3VZ6b58d8romda7Pdn17D0LFuZu7l8O1w+1s/XTu+6hrviwv540i5+qb27bbc nm80c5fl+bcmlt9ap4xyFXEYkP21jq0m8tjmGy3Vdw PrPONXt/0Sc1z5mi7Mfq/o2ml5oEs+5wHrYh4gCYUQek0Cgcd0KgnyNwsfvZSTjsZ6L68d9we/um3oBX qBXr+2sKy2hkxR+gQ6sE1Ag1Ecxa/6PiN+Uaey8fio31x+ZrvPw/ksjp142s1f6HUF+FU+17iu1xxp4m 3173s2aplKw8i8bvzuykG837Jq7BvyEI109/19N+t5 grpHD21jkS389roW+JUj/2zb07s1jw/12xGDtetx25qUT0T9+UFP/yqfS/pXt/35A57+VT6j9K+qbdC3 f+Wr/UehG1wN3kVm3H/oD/S9/+ve+7/uD/YGrVNk5Qw/7N7+j7h6mjeio2X/jv5m/KraC/tPkQHa9M/o +kwWy71Fkj/oli46gHotK9pYElKWh1/5yn6r4Nlzra l59vhtEp50+wxQ124+bvR3o7/qi9ak9Z/0/X3kp7+P/DzQC/QCvUKP/l0606Q/B/1N/whfze3M9rV0Nk HdNa3B5uG37Vx5N2r201ZSjx/9fPfzQC/QC/QKvUI/oB/QT+ig8Qy9Zi+nF1R98Y44qc7Cp3OWobV0Qv EL9P3HjpC3BxSI1P2IhbL2NnNA9U3ZpiA3HyLC5I6B tlM6LoYB5Y2QhnK4UoJZ8S7DdfZ7CtKQ0X8PolV38qx3w45w/ZxvDj4JcuHn7Da3dH46u35vaQCn8ZdZ wDraG2xVu5eIG2+/ujN+XtmbiQ9nHl6RyvRk8672bt8EubpZxMAi04K33DUpk/X81V956n76mAsalG+3 Eb/ao+N1e3Z+4S4pZ9ttIY/QK/QK/ejrz/af9+z45J 1n62X6XC0tz3dAp59Oun4Gus0mfyYkQ/LbN/LbN/LbN/LbN/Lbt/X34Lb+/t3W+Oqt7Vi5EGvs52amcX 824lcb+Yd27k3UD+N5pN6+7/ed/oY64ak4l9j21R23io4Mb7H/ra/mp4IKLcLI6WH0sL53M/7/Tv+q2h J1Cu1Wv5Zk9Hl3Ks4Hl6Pg3Ws/Ne8t+xbx4E1uB3eP NoUQ6XN81Fl3k1nr4P/lM4V/wY4wFy5Sms48oa9/f7d7j3/3nte+b941x8jphk0ad+3n+87a+/n28ffr O0Qt9p71J3P9igfmxgDES9/7nb8j+/z6L9nhg8Fmu/IqK78M8zE6se5MP2jpM+Bt6DiO7W90qj5XL909 /vt8d/Yx/KudNgn/xdk9sJ7Lp/s+38xP2+FfrexX+F eW9xD+lWXfw7+Hirsch+337yX/PuJ1ac/wrzL+childbirth and infant care teacher/8pyn4V/aXRyYm0tFs7yqQ+36EqxVyfg8w0Dcx98H3+ llyG13z3Lmv27Ve2Duv2Dx8wmI7/5fbK6mPXyCGhWT1Zz8Q/oJ/YTeoDfoF/QL+b3JEcCsZnvBeaw+33 2eA/1pPfyrA//dxV353E4A/KsD/+iLjqkfl571T/Vb O51b8Zw0S/oFfdcrOLU/YOB9N1RtP0Gx755cbZ09rO71qI71BECP7TU2Jz0OheE/oTfo+3v/aK9XB/Wv Vmwwtai7rx399fnZE+SA1W3Ws+/9ftK/asIhtO2WSlH9h73wtZ4QfB64nR79aXCskbE/vhbgLuy0r4y/ gir89ADmvgo1p5f2FhJC/8mt3g3aqz9/0r86qT/fPs XGJj82Gc+6bbtr+Mn4laS+03PIep988mwhtxspGiH7pB0D4Ge2nvW+fnGnk/KsJDxQkp8sszw9wqqvkY tk/MpTH/CuTGcWx2lfUri28Fl63B933l4Vuct90+aE8ILsuvY2dS41WpQ/qnvO+jgHnuvqd4J1fUvKEm kL6ik3RNWdtlgz4SaO/vPdrM1F8G4f7z/fY50/eSzP p8QYW+0/e5V8MB2i+PNZXY/urG1fhmB/L5zMb8/5svo8+1mYv8i/CwjNW98S/sZZC/oFfe+jgYR8CzXu DupfHdS/Oqh/dVD/6qA+x2t2NsXwmy440lnX+pz+Ao1wtXD1G/8j28ireHibB/UPtvcFmD32mAD/oT/Q d/2Ns/j7wxg7MdDSbfNrfOjf4o+N/m70d6O/8K8O4l raw4kg8QA1lingImqE/Yb+QN/pkIW1BweGN91UZ7NE64K60lP+dRC/OohfnQN/49LtHOewlk1e7S2skk 7PF/Grg/vSOpiqLG77p/XfPRtwzpLFrFqCCAIWBWILLOyAWyGWIYLOEZAcUx1sC/nqUSKM3VUE61IJLY gIESWiRAaRQWQSmUSMiBFZRBYRJ+ZXxCRqHQK8UKxG JL4M32N5PaKrGLgGzM4PKuNgTGrP9SagJ3mLtQKFSLJScQAIVIZBVJ3QBiPFr83NoTUDAfpQvTulf8ux IxiV8pXNPwYcCMEuHV5VymapTlDC6VIl2g67GEB4mLGPXe7lrIuT+HfNdQ6fW0c0gN5m8ZS1co8A3/v+ A8bQcwep+wkdGnsFIovIIuJEnMj+Ufdj9WynM7ZHzz 0EB8K7WSFdZUCBl5v2Ceer+BxKjZfMMPM4NFhDqAkytBmmb7/UgEAdgDmm6FihN9CaZFliu9pnwfHj44 EXZEM1J+TW/hXVx1mN6cNo4vxhLUuDngdsHzNjO3VE9Rn7wCocp6zEVQRyOCtL1Rb92FCIKNZowaB060 FgOwEVbGQIFaJPOCGQUUQyWsaMe2WISYCRkRkcSxbZ OLHNjXV1WIQ1kFiHOkZALQGJJKQJJVWE8wQjau+nTXW4474qv/rotwpenVu8y8j/baXgrv3TteIqYv/O TpuQ7uLGoQVE4/ZUVTj1ahmhFxE3Zrhexrp+pprGpZ8jZz34jta/7o/y0vu9Xg/10b1ZJFxAualmBaR2 GKhZt4jkwwwgbo5lNZohKOJzYeBaj/40z6ks8GEnvw J+JnCmK1JfdISb/IBZHa0LGfVt1I0Ttu7j+BRTbD2x/EOBFK9T4qs9vaK0bCEXdr9EeBk7lux+T0RdT9 7H72pJ8KEJrTQ7vsYMaqWS/AN54B+FtH3RyVwDPmeEepYbCNJ3NybXnJUKN1W/ByptTq3DhE2c6VKRjb NHXmN6eKT/QrawOs8LiN3nSv4Q1ACfICgN+mkXV0RJ Nkg/xXiracaaPoTkNxYiYCNpsJbxg1ZWz4Rf6F9Zbw5gJNF4JbLUthNPkq7gVfPq/rOrZeH7umhM/ScQ WOW7032bpA4mEQaayVJ7+gqqFufEK8Off0mwzncQD2EP/3GqJ7CJHHdlXmdpixfc9Z/N7VNeOdZxsGPl A7WQ+FOVPYIbMTXBV0SW8tq7GPERABAAAFLPkF5Iby [file] J+xpCW9Pc4zqW5gNBqbcwNGF6HmlTxqIT0f6m+[place] [file] Z2dISlEbo4Cvh2SZzsUJBTQu== ID Date Data Source [id number] 07/19/2019 06:24:41 AM EDT [facility] Name Value Range Interpretation Code Description Data Candie rce(s) Supporting Document(s) TOTAL PROTEIN 7.4 g/dL (6.4-8.2) [facility] ALBUMIN 4.0 g/dL (3.5-4.6) [facility] GLOBULIN 3.4 g/dL (2.7-4.3) [facility] ALB/GLOB RATIO 1.2 RATIO [facility] BILIRUBIN,TOTAL 0.5 mg/dL (0.0-1.0) [facility] PLEASE NOTE:Total bilirubin results may be falselyelevated in patients taking Eltrombopag. BILIRUBIN,CONJUGATED 0.1 mg/dL (0.0-0.3) [facility] BILIRUBIN,UNCONJ. 0.4 mg/dL (0.0-0.7) [facility] ALKALINE PHOSPHATASE 113 U/L (45-117) [facility] AST (SGOT) 24 U/L (11-39) [facility] ALT (SGPT) 27 U/L (12-78) [facility] ID Date Data Source [id number] 07/19/2019 06:24:41 AM EDT [facility] Name Value Range Interpretation Code Description Data Candie rce(s) Supporting Document(s) MAGNESIUM 2.1 mg/dL (1.7-2.4) [facility] ID Date Data Source [id number] 07/19/2019 06:24:41 AM EDT [facility] Name Value Range Interpretation Code Description Data Candie rce(s) Supporting Document(s) SODIUM 136 mmol/L (136-145) [facility] POTASSIUM 3.7 mmol/L (3.6-5.2) [facility] CHLORIDE 105 mmol/L (100-108) [facility] CO2 26 mmol/L (22-31) [facility] ANION GAP 5 mmol/L (7-16) L [facility] UREA NITROGEN 12 mg/dL (7-24) [facility] CREATININE 0.97 mg/dL (0.80-1.30) [facility] BUN/CREAT RATIO 12.4 RATIO (10.0-20.0) [facility] GLUCOSE 91 mg/dL (70-99) [facility] CALCIUM 8.5 mg/dL (8.4-10.2) [facility] GFR >60 ml/min/1.73m2 (>59) [facility] GFR ( AMER) >60 ml/min/1.73m2 (>59) [facility] GFR INTERPRETATION [facility] --NORMAL KIDNEY FUNCTION OR MILD DISEASE - GFR >OR= 60CHRONIC KIDNEY DISEASE - GFR 15 - 59RENAL FAILURE - GFR <15 Est. GFR calculation based on the MDRDstudy equation, which assumes a steadystate for creatinine. Est. GFR should notbe used for medication dosing. ID Date Data Source [id number] 07/19/2019 06:24:41 AM EDT [facility] Name Value Range Interpretation Code Description Data Candie rce(s) Supporting Document(s) TROPONIN I <0.05 ng/mL (<0.05) [facility] Less than 0.05: Myocardial injury unlike lyGreater than or equal to 0.05: Highly suggestive of myocardial injuryCorrelation with rise and/or fall ofserial troponins, clinical symptomsand ECG changes is necessary. ID Date Data Source [id number] 07/19/2019 06:08:15 AM EDT [facility] Name Value Range Interpretation Code Description Data Candie rce(s) Supporting Document(s) WBC 5.6 10*3/uL (4.1-11.0) [facility] RBC 4.89 10*6/uL (4.60-6.10) [facility] HGB 13.8 g/dL (13.5-18.0) [facility] HCT 40.8 % (41.0-53.0) L [facility] MCV 83.3 fL (80.0-95.0) [facility] MCH 28.2 pg (27.0-32.0) [facility] MCHC 33.9 g/dL (32.0-36.0) [facility] RDW 15.3 % (10.5-14.5) H [facility] PLT 240 10*3/uL (150-450) [facility] MPV 7.8 fL (7.1-10.7) [facility] NEUT % 63.9 % (35.0-75.0) [facility] LYMPH % 20.6 % (16.0-52.0) [facility] MONO % 11.9 % (0.0-8.0) H [facility] EOS % 3.1 % (0.0-5.0) [facility] BASO % 0.5 % (0.0-4.0) [facility] NEUT # 3.6 10*3/uL (1.8-7.7) [facility] LYMPH # 1.2 10*3/uL (1.2-4.8) [facility] MONO # 0.7 10*3/uL (0.0-0.8) [facility] Eosinophils [#/volume] in Blood by Automated count 0.2 10*3/uL (0.0-0 .5) [facility] BASO # 0.0 10*3/uL (0.0-0.2) [facility] Procedure Social History Code Duration Value Status Description Data Source(s ) Smoking 11/04/2019 12:00:00 AM EDT Patient has never smoked co mpleted Patient has never smoked [facility] Smoking 07/19/2019 05:56:00 AM EDT Former Smoker completed Former Smoker [facility] Vital Signs ID Date Data Source UNK Name Value Range Interpretation Code Description Data Source(s) Diastolic blood pressure 67 mm[Hg] 67 mm[Hg] [facility] Systolic blood pressure 119 mm[Hg] 119 mm[Hg] [facility] Body mass index (BMI) [Ratio] 25.8 kg/m2 25.8 k g/m2 [facility] Oxygen saturation in Arterial blood by Pulse oximetry 96 % 96 % [facility] Body weight 201.00 [lb_av] 201.00 [lb_av] [facility] Body height 74 [in_i] 74 [in_i] [facility] 6'2" Respiratory rate 16 /min 16 /min [facility] Body temperature 97.3 [degF] 97.3 [degF] [facility] Heart rate 56 /min 56 /min [facility] Heart rate 74 min Normal (applies to non-numeric resul ts) 74 min [facility] Body weight Measured 220 [lb_av] Normal (applies to n on-numeric results) 220 [lb_av] [facility] Body temperature 36.9 caitlin Normal (applies to non-numeric results) 36.9 caitlin [facility] Respiratory rate 16 min Normal (applies to non-numeric results) 16 min [facility] Deprecated Oxygen saturation in Capillary blood by Oximetry 96 % Normal (applies to non-numeric results) 96 % [facility] Body height 190.1952 cm Normal (applies to non-numeric res ults) 190.1952 cm [facility] Body mass index (BMI) [Ratio] 27.4 kg/m2 No rmal (applies to non-numeric results) 27.4 kg/m2 [facility] Diastolic blood pressure 84 mm[Hg] Normal (applies to non-numeric results) 84 mm[Hg] [facility] Systolic blood pressure 117 mm[Hg] Normal (applies t o non-numeric results) 117 mm[Hg] [facility]
--- NOTE | 2020-06-09 16:10 | REP ---
INDICATION: r/o cva. COMPARISON: Comparison head CT study 10 Sep 2014.. TECHNIQUE: Helical scanning is acquired. 5 mm axial images were reformatted. Coronal MPR images were generated. FINDINGS: Bone window settings demonstrate an intact bony calvarium. There is no evidence of skull fracture or incidental bony calvarial lesion. The visualized paranasal sinuses appear clear. No intraorbital abnormality is seen. On soft tissue window setting images; the lateral, third, and fourth ventricles are normal in size and position. Palmer-white differentiation pattern is normal above and below the tentorium. There are is no evidence of intracranial hemorrhage. No mass, edema, infarction, or midline shift is seen. No extra-axial fluid collection is appreciated. No change from comparison study. IMPRESSION: Negative noncontrast head CT. <Electronically signed by Rowdy Martinez > 06/09/20 [id number]
[2020-06-09] MEDS ORDERED: VITA50005 PO (16:12)
[2020-06-09] MEDS ORDERED: QUET200T2 PO (16:12)
[2020-06-09] MEDS ORDERED: QUET50TA3 PO (16:12)
[2020-06-09] MEDS ORDERED: RISP-9 PO (16:12)
[2020-06-09] MEDS ORDERED: CLON0.2T PO (16:12)
[2020-06-09] MEDS ORDERED: AMPH1CAP14 PO (16:12)
[2020-06-09] MEDS ORDERED: LORazepam 2 MG/ML VIAL IV STA (16:12)
--- NOTE | 2020-06-09 16:34 | REP ---
INDICATION: Altered Mental Status. COMPARISON: Comparison chest x-ray May 10, 2015. TECHNIQUE: Portable upright AP chest radiograph. FINDINGS: The lungs are well inflated and free of infiltrate. Pleural angles are sharp. Heart size is normal. Pulmonary vasculature is not increased. Monitoring electrodes are seen. Fusion plate is noted in the lower cervical spine. IMPRESSION: No active disease. <Electronically signed by Rowdy Martinez > 06/09/20 [id number]
[2020-06-09 16:40] LABS: BASO # 0.1 10^3/uL (0.0-0.2); BASO % 0.7 % (0.0-1.0); EOS % 0.3 % (0.0-3.0); HEMATOCRIT 38.9 % (42.0-52.0); HEMOGLOBIN 12.9 g/dl (13.5-17.5); LYMPH # 1.6 10^3/uL (1.5-5.0); LYMPH % 21.5 % (24.0-44.0); MEAN CORPUSCULAR HGB CONC 33.2 g/dl (32.0-36.5); MEAN CORPUSCULAR VOLUME 84.4 fl (80.0-96.0); MONO # 0.5 10^3/uL (0.0-0.8); MONO % 7.2 % (2.0-8.0); NEUTROPHILS # 5.2 10^3/uL (1.5-8.5); NEUTROPHILS % 69.8 % (36.0-66.0); PLATELET COUNT, AUTOMATED 295 10^3/uL (150-450); RED BLOOD COUNT 4.61 10^6/uL (4.30-6.10); WHITE BLOOD COUNT 7.4 10^3/uL (4.0-10.0)
--- OUTSIDE RECORDS SUMMARY | 2020-06-09 16:47 | CCD ---
Author Author [facility] Organization [facility] Address Unknown Phone Unavailable Care Team Providers Care Cloth Neutralizer Name Role Phone Oskar Adame PA-C Unavailable Unavailable Oskar Adame PA-C Unavailable Unavailable Oskar Adame PA-C Unavailable Unavailable Oskar Adame PA-C Unavailable Unavailable Oskar Adame PA-C Unavailable Unavailable PHYSICIAN, ER Unavailable Unavailable HERNANDO AGUILAR Unavailable Unavailable Pleskach, Zoila STORAGE WHARFAGE CLERK Unavailable Unavailable Pleskach, Zoila STORAGE WHARFAGE CLERK Unavailable Unavailable Pleskach, Zoila STORAGE WHARFAGE CLERK Unavailable Unavailable Pleskach, Zoila STORAGE WHARFAGE CLERK Unavailable Unavailable Pleskach, Zoila STORAGE WHARFAGE CLERK Unavailable Unavailable Pleskach, Zoila STORAGE WHARFAGE CLERK Unavailable Unavailable Pleskach, Zoila STORAGE WHARFAGE CLERK Unavailable Unavailable Pleskach, Zoila STORAGE WHARFAGE CLERK Unavailable Unavailable Pleskach, Zoila STORAGE WHARFAGE CLERK Unavailable Unavailable Pleskach, Zoila STORAGE WHARFAGE CLERK Unavailable Unavailable Pleskach, Zoila STORAGE WHARFAGE CLERK Unavailable Unavailable Pleskach, Zoila STORAGE WHARFAGE CLERK Unavailable Unavailable Pleskach, Zoila STORAGE WHARFAGE CLERK Unavailable Unavailable Pleskach, Zoila STORAGE WHARFAGE CLERK Unavailable Unavailable Pleskach, Zoila STORAGE WHARFAGE CLERK Unavailable Unavailable Pleskach, Zoila STORAGE WHARFAGE CLERK Unavailable Unavailable Pleskach, Zoila STORAGE WHARFAGE CLERK Unavailable Unavailable Pleskach, Zoila STORAGE WHARFAGE CLERK Unavailable Unavailable Pleskach, Zoila STORAGE WHARFAGE CLERK Unavailable Unavailable Pleskach, Zoila STORAGE WHARFAGE CLERK Unavailable Unavailable Pleskach, Zoila STORAGE WHARFAGE CLERK Unavailable Unavailable Pleskach, Zoila STORAGE WHARFAGE CLERK Unavailable Unavailable Pleskach, Zoila STORAGE WHARFAGE CLERK Unavailable Unavailable Pleskach, Zoila STORAGE WHARFAGE CLERK Unavailable Unavailable Pleskach, Zoila STORAGE WHARFAGE CLERK Unavailable Unavailable Pleskach, Zoila STORAGE WHARFAGE CLERK Unavailable Unavailable Pleskach, Zoila STORAGE WHARFAGE CLERK Unavailable Unavailable Pleskach, Zoila STORAGE WHARFAGE CLERK Unavailable Unavailable Pleskach, Zoila STORAGE WHARFAGE CLERK Unavailable Unavailable Pleskach, Zoila STORAGE WHARFAGE CLERK Unavailable Unavailable PHYSICIAN, PHYSICIAN ER Unavailable Unavailable [...] Unavailable MARGY RUBALCAVA Unavailable Unavailable DESJARLAIS, SALMA ELECTROPLATER Unavailable Unavailable DESJARLAIS, SALMA ELECTROPLATER Unavailable Unavailable DESJARLAIS, SALMA ELECTROPLATER Unavailable Unavailable DESJARLAIS, SALMA ELECTROPLATER Unavailable Unavailable DESJARLAIS, SALMA ELECTROPLATER Unavailable Unavailable DESJARLAIS, SALMA ELECTROPLATER Unavailable Unavailable DESJARLAIS, SALMA ELECTROPLATER Unavailable Unavailable DESJARLAIS, SALMA ELECTROPLATER Unavailable Unavailable DESJARLAIS, SALMA ELECTROPLATER Unavailable Unavailable SERGEY, 0000{ Unavailable Unavailable Re-disclosure [...] is protected by Article 27-F of the [facility] Public Health law. If you continue you may have access to information: Regarding HIV / AIDS; Provided by facilities licensed or operated by the [facility] Office of Mental Health; or Provided by the [facility] Office for People With Developmental Disabilities. If such information is present, then the following [facility] mandated warning applies: This information has been [...] law may result in a fine or half-way sentence or both. A general authorization for the release of medical or other information is NOT sufficient authorization for further disc losure. Family History Family Member Name Family Member Gender Family Member Status Date o f Status Description Data Source(s) Unknown Unknown Problem [facility] ([facility]) Unknown Female Problem [facility] ([facility] ) Unknown Unknown Problem [facility] ([facility] ) Unknown Unknown Problem [facility] ([facility] ) Unknown Unknown Problem [facility] ([facility] ) Unknown Unknown Problem [facility] ) Unknown Unknown Problem [facility] ([facility] ) Unknown Unknown Problem [facility] ([facility] ) Unknown Female Problem [facility] ([facility] Encounters Encounter Providers Location Date Indications Data Source(s ) Outpatient Attender: SALMA BARRETO NP 05/24/2020 09: 12:00 AM [facility] Outpatient Attender: SALMA BARRETO NP 04/26/2020 08: 50:00 AM [facility] Outpatient Attender: HERNANDO AGUILAR 04/06/2020 01:00:00 PM [facility] Outpatient Attender: SALMA BARRETO NP 03/30/2020 03: 37:00 PM [facility] Outpatient Attender: SALMA BARRETO NP 02/25/2020 04: 00:00 PM [facility] Outpatient Attender: HERNANDO AGUILAR 02/18/2020 04:00:00 PM [facility] Outpatient Attender: HERNANDO AGUILAR 02/11/2020 03:56:00 PM [facility] Outpatient Attender: SALMA BARRETO ELECTROPLATER 02/10/2020 03: 12:00 PM [facility] Outpatient Attender: HERNANDO AGUILAR 02/04/2020 04:00:00 PM [facility] Outpatient Attender: SALMA BARRETO ELECTROPLATER 01/28/2020 04: 20:00 PM [facility] Outpatient Attender: HERNANDO AGUILAR 01/24/2020 10:57:00 AM [facility] Outpatient Attender: HERNANDO AGUILAR 01/20/2020 09:04:00 AM [facility] Outpatient Attender: SALMA BARRETO ELECTROPLATER 01/13/2020 04: 00:00 PM [facility] Outpatient Attender: HERNANDO AGUILAR 01/07/2020 11:00:00 AM [facility] Outpatient Attender: SALMA BARRETO ELECTROPLATER 12/23/2019 04: 00:00 PM [facility] Outpatient Attender: HERNANDO AGUILAR 12/13/2019 04:00:00 PM [facility] Outpatient Attender: SALMA CARBONERVÍCTOR ELECTROPLATER 12/09/2019 03: 40:00 PM [facility] Outpatient Attender: SALMA RAFRVÍCTOR ELECTROPLATER 11/30/2019 11: 20:00 AM [facility] Outpatient Attender: SALMA MARY LOU ELECTROPLATER 11/16/2019 04: 00:00 PM [facility] Outpatient Attender: HERNANDO AGUILAR 11/16/2019 03:00:00 PM [facility] Outpatient Attender: SALMA CARBONERVÍCTOR ELECTROPLATER 11/11/2019 04: 20:00 PM [facility] Outpatient Attender: HERNANDO AGUILAR 11/09/2019 10:00:00 AM [facility] Outpatient Attender: Zoila GLASERP Main Office 11/04/2019 1 1:45:00 AM [facility] Outpatient Attender: HERNANDO AGUILAR 11/02/2019 01:00:00 PM [facility] Outpatient Attender: SALMA BARRETO NP 10/21/2019 10: 00:00 AM [facility] Outpatient Attender: HERNANDO AGUILAR 10/13/2019 10:00:00 AM [facility] Outpatient Attender: HERNANDO AGUILAR 09/29/2019 04:00:00 PM [facility] Outpatient Attender: SALMA BARRETO NP 09/15/2019 03: 49:00 PM [facility] Outpatient Attender: HERNANDO AGUILAR 09/14/2019 04:00:00 PM [facility] Outpatient Attender: SALMA BARRETO NP 08/31/2019 03: 40:00 PM [facility] Outpatient Attender: SALMA BARRETO NP 08/27/2019 04: 00:00 PM [facility] Admission cancelled. Disregard status an d admitted date. Outpatient Attender: HERNANDO AGUILAR 08/19/2019 09:00:00 AM [facility] Outpatient Attender: HERNANDO AGUILAR 08/02/2019 09:07:00 AM [facility] Outpatient Attender: SALMA BARRETO NP 07/30/2019 03: 40:00 PM [facility] Outpatient Attender: HERNANDO AGUILAR 07/26/2019 10:00:00 AM [facility] Outpatient Attender: DREA MÁRQUEZCAttender: MARGY RUBALCAVA 07/20/2019 04:11:00 PM [facility] Emergency Attender: ER PHYSICIAN 07/19/2019 06:08:16 AM E [facility] [place] [facility] Attender: 0000{ [place] 0 05:39:00 AM EDT - 07/19/2019 07:48:00 AM EDT [facility] Emergency Attender: Andrés Montes: ER PHYSICIAN 07/19/2019 05:39:00 AM EDT - 07/19/2019 07:48:00 AM EDT CHEST PAIN [facility] CHEST PAIN Patient discharged. Outpatient Attender: SALMA BARRETO NP 07/15/2019 04: 20:00 PM [facility] Outpatient Attender: SALMA BARRETO NP 06/29/2019 04: 40:00 PM [facility] Outpatient Attender: SALMA BARRETO NP 02/09/2019 03: 00:00 PM [facility] Medications Medication Brand Name Start Date Product [...] THREE TIMES A DAY NEEDED SOLD: 05/01/2020 [facility] quetiapine 200 MG Oral Tablet QUETIAPINE [...] THREE TIMES A DAY NEEDED SOLD: 03/22/2020 [facility] quetiapine 200 MG Oral Tablet QUETIAPINE [...] DAILY DOSE = THREE TABLETS SOLD: 07/30/2019 [facility] 12.5 mg 07/30/2019 12:00:00 AM EDT [...] type / Coverage type Policy ID Covered alliance party ID Covered alliance party's relationship to mendez Policy Mendez Plan Information [facility] [id number] SP [id number] FAMILY HEALTH PLAN [id number] S [id number] [facility] HEALTH PLAN [id number] S [id number] [facility] [id number] SP [id number] [facility] [id number] S [id number] [place] [employer] [id number] Self 00 [id number] [place] [employer] [id number] Self 00 [id number] [place] [employer] [id number] Self 00 [id number] [place] [employer] [id number] Self 00 [id number] [place] [employer] [id number] Self 00 [id number] [facility] [id number] SP [id number] [place] [employer] [id number] Self 00 [id number] [place] [employer] [id number] Self 00 [id number] [place] [employer] [id number] Self 00 [id number] [place] [employer] [id number] Self 00 [id number] [place] [employer] [id number] Self 00 [id number] [place] [employer] [id number] Self 00 [id number] [place] [employer] [id number] Self 00 [id number] [place] [employer] [id number] Self 00 [id number] MEDICARE [id number] SP [id number] [id number] [facility] [id number] SP [id number] [place] [employer] [id number] Self 00 [id number] [place] [employer] [id number] Self 00 [id number] [facility] [id number] 18 [id number] [facility] Commercial [id number] Self 00 [id number] HEA [id number] [facility] Commercial [id number] Self 00 [id number] [facility] [id number] Self 00 [id number] [facility] Commercial [id number] Self 00 [id number] [facility] HEALTH PLAN U [id number] Se lf [id number] [facility] Commercial [id number] Self 00 [id number] [facility] Commercial [id number] Self 00 [id number] [facility] Commercial [id number] Self 00 [id number] [facility] [id number] SP [id number] [id number] [facility] Commercial [id number] Self 00 [id number] [facility] F [id number] SELF [id number] [facility] [id number] SP [id number] [facility] F [id number] SELF [id number] [facility] Commercial Self [facility] Commercial Self [facility] Health Maintenance Organization (HMO) Self [facility] O [id number] S [id number] [facility] [id number] SP [id number] [facility] [id number] Sunitha [id number] Problems, Conditions, and Diagnoses Code Display Name Description Problem Type Effective Dates Data Source(s) G47.00 Insomnia, unspecified INSOMNIA, UNSPECIFIED Diagnosis 04/26/2020 08:50:00 AM [facility] F90.9 Attention-deficit hyperactivity disorder , unspecified type ATTENTION- DEFICIT HYPERACTIVITY DISORDER, UNSPECIF Diagnosis 04/26/2020 08:50:00 AM [facility] F41.0 Panic disorder [episodic paroxysmal anxi ety] PANIC DISORDER [EPISODIC PAROXYSMAL ANXIETY] Diagnosis 04/26/2020 08:50:00 AM [facility] F43.10 Post-traumatic stress disorder, unspecif ied POST-TRAUMATIC STRESS DISORDER, UNSPECIFIED Diagnosis 04/26/2020 08:50:00 AM [facility] gustavo F12.10 Cannabis abuse, uncomplicated CANNABIS ABUSE, UNCOMPLI CATED Diagnosis 03/30/2020 03:37:00 PM [facility] G89.21 Chronic pain due to trauma CHRONIC PAIN DUE TO TRAUMA Diagnosis 03/30/2020 03:37:00 PM 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 Diagno sis 10/21/2019 10:00:00 AM [facility] R07.9 Chest pain, unspecified CHEST PAIN, UNSPECIFIED Diagno sis 07/20/2019 04:11:00 PM [facility] F41.9 Anxiety disorder, unspecified ANXIETY DISORDER, UNSPEC IFIED Diagnosis 07/20/2019 04:11:00 PM [facility] Surgeries/Procedures Procedure Description Date Indications Data Source(s) APPLICATION SHORT LEG CAST BELOW KNEE-TOE 08/26/2019 1 2:00:00 AM EDT [facility] ([facility] ) RADIOLOGIC EXAMINATION TIBIA & FIBULA 2 VIEWS 08/26/19 20 12:00:00 AM EDT [facility] ([facility] ) Debridement FX/Dislocation; Skin, Subcutan, Muscle & Bone 08/21/2019 12:00:00 AM EDT [facility] ([facility] ) CLTX TIBIAL SHAFT FX W/O MANIPULATION 08/21/2019 12:00 :00 AM EDT [facility] ([facility] ) Electrocardiogram Interpretation & Report Only 020 12:00:00 AM EDT [facility] ([facility]) Results ID Date Data Source [id number] 11/04/2019 01:17:00 PM EDT [facility] ([facility] Name Value Range Interpretation Code Description Data Candie rce(s) Supporting Document(s) Thyroxine (T4) free [Mass/volume] in Serum or Plasma 0.90 ng/dL 0.76- 1.46 [facility] ([facility] Thyrotropin [Units/volume] in Serum or Plasma 1.010 uIU/ML 0.358-3.74 0 [facility] ([facility] ID Date Data Source [id number] 11/04/2019 01:17:00 PM EDT [facility] ([facility] Name Value Range Interpretation Code Description Data Candie rce(s) Supporting Document(s) Triglycerides Level 139 mg/dL [facility] ([facility] Cholesterol Level 190 mg/dL [facility] ([facility] HDL Cholesterol 37 mg/dL [facility] ([facility] LDL Cholesterol 125 mg/dL [facility] ([facility] Cholesterol Risk Ratio 5.135 [facility] ([facility] Non-HDL-C 153 mg/dL [facility] ID Date Data Source [id number] 11/04/2019 01:17:00 PM EDT [facility] ([facility] Name Value Range Interpretation Code Description [facility] Supporting Document(s) Glucose, Fasting 77 mg/dL 70-100 [...] Little GFR Left</content>
<content>ESRD GFR <15 on NEWS COMMENTATOR</content>
<content></content> Sodium Level 140 meq/L 136-145 [facility] [...] [facility] ID Date Data Source [id number] 11/04/2019 01:17:00 PM EDT [facility] ([facility] [...] % 0.0-3.0 [facility] ([facility] [place] % 8.4 % 0.0-5.0 [facility] ([facility] Baso % 0.6 % 0.0-1.0 [facility] ([facility] Immature Granulocyte % 0.2 % 0-3.0 [facility] ([facility] Nucleated Red Blood Cell % 0.0 % 0-0 [facility] ([facility] Neutrophils # 3.1 10 1.5-8.5 [facility] ([facility] [place] # 0.4 10 0.0-0.8 [facility] ([facility] Lymph # 1.4 10 1.5-5.0 [facility] Eos # 0.0 10 0.0-0.5 [facility] Baso # 0.0 10 0.0-0.2 [facility] ([facility] ID Date Data Source [id number] 11/04/2019 01:11:00 PM EDT [facility] ([facility] [...] - 390 Performed at: RN - [facility] [address] [id number] Skin Diver: Vivian Winn MD, Phone: [phone] Performed at: [facility] [address] [place] [id number] Skin Diver: Soren Guillory MD, Phone: [phone] ID Date Data Source [id number] 11/04/2019 01:11:00 PM EDT [facility] ([facility] Name Value Range Interpretation Code Description Data Candie rce(s) Supporting Document(s) Testosterone Total For T&D 411.0 ng/dL 264-916 [facility] ([facility] <content>Adult male reference interval i s based on a population of</content>
<content>healthy nonobese males (BMI <30) between 19 and 39 years</content>
<content>old. Caitlin, et.al. JCEM 2017,102;3151-8649. PMID:</content>
<content>[id number].</content>
<content></content> Testosterone Free (Direct) 12.1 pg/mL 6.8-21.5 [facility] ([facility] ID Date Data Source [id number] 11/04/2019 01:11:00 PM EDT [facility] ([facility] Name Value Range Interpretation Code Description Data Candie rce(s) Supporting Document(s) PSA Total 0.4 ng/mL 0.0-4.0 [facility] ([facility] Regine ECLIA methodology. . According to the [employer], Serum PSA should decrease and [...] and 10.0 ng/mL. ID Date Data Source [id number] 11/04/2019 01:11:00 PM EDT [facility] ([facility] [...]
<content>THE eESTRADIOL2 ASSAY IS PERFORMED ON THE [facility] BY</content>
<content>CHEMILUMINESCENCE AND SHOULD NOT BE COMPARED INTERCHANGEABLY</content>
<content>WITH OTHER METHODS.</content>
<content></content>
<content>Falsely elevated Estradiol test results can be seen in</content>
<content>patients treated with fulvestrant (Faslodex). Estradiol</content>
<content>concentrations in fulvestrant treated women should only be</content>
<content>measured by LC- MS (Liquid Chromatography-Mass Spectrometry).</content>
<content></content> ID Date Data Source [id number] 11/04/2019 01:11:00 PM EDT [facility] ([facility] [...] % 0.0-3.0 [facility] ([facility] [place] % 8.1 % 0.0-5.0 [facility] ([facility] [...] 10 1.5-5.0 [facility] ([facility] [place] # 0.4 10 0.0-0.8 [facility] ([facility] Eos # 0.0 10 0.0-0.5 [facility] Baso # 0.0 10 0.0-0.2 [facility] ([facility] ID Date Data Source [id number] 08/21/2019 11:45:00 AM EDT [facility] ([facility] [...] pathogens. DISCLAIMER: Testing was performed using the [employer] SARS-CoV-2 test. This test was developed and its performance characteristics determined by [employer]. This test has not been FDA cleared [...] or revoked sooner. ID Date Data Source [id number] 07/19/2019 08:04:00 AM EDT [facility] [...] acute intracranial pathology. Professional interpretation performed at [facility] .End of diagnostic report for accession: [id number] Interpreted: Joe Lopez MDTranscribed: 07/19/2019 08:01 AMSigned: 07/19/2019 08:04 AM Joe Lopez MD [facility] # [id number] BILL # [id number] Name Value Range Interpretation Code Description Data Candie rce(s) Supporting Document(s) ID Date Data Source [id number] 07/19/2019 08:33:00 AM EDT [facility] DATE OF EXAM: 07/19/2019CHEST RADIOGRAPH , SINGLE [...] or pulmonary edema. Professional interpretation performed at [facility] .End of diagnostic report for accession: [id number] Interpreted: Davis Ortizscribed: 07/19/2019 08:31 AMSigned: 07/19/2019 08:33 AM Davis Ortiz DO [facility] # [id number] BILL # [id number] Name Value Range Interpretation Code Description Data Candie rce(s) Supporting Document(s) ID Date Data Source [id number] 07/19/2019 05:56:41 AM EDT [facility] Name Value Range Interpretation Code Description Data Candie rce(s) Supporting Document(s) MUSE EKG PDF encoded Sergey sumner ACIAPj7nVtGZTbOua6ElBmHwZOKyIT2kwfu9T5B6jQPrT4RoeLKcy9mqT3TsH5OsXUUjFMMREJ5HcGMx jb2 [file] lxuD1HC2EpItOZDFQTXXTzat5GIiUGPWDNTWFGLmDF 0GJ4BHYDNnEBAl6t0BVAL9ClbfUNLC7z54YjMcijp6E4wm2bapaeDaDWiJqwy1csdkaaJPYuDEvTA9Uj KGYF8AhNY3e5FXRTcu4K9QTiOeT0uLiNFW5y+mDTB5s+5GNJnh72pnMhu95mxPkDpZSPaKbLlLiLifo8 jcmVN8p4XTFlhhyZxhl7DzkxR9Pu8UT3iIVmOAPmYg WOWTFf2sZbe+p0JG7mimBPaTvuEM+q7ngxiSuZw058Gon9selAjv3vATr4hkFwugyz3nqqqy7v8hbNtx 1wIYb8ieIti8G5sxd5uX+079P4EzMM2YjhUMa3PZW6KMvtEV+rnU3F5aMfaXeQB6ftRvIInbLQVKped1 XOdGm02ITfxlf8FKw0Ae5ECiJxUdZvnJpCU/mEIBJE Ln/f7d7i15Vyf/IJlVO2/6ysJJrVUziGEiQ0F1TXy9bgnxALBRUnPQkNFRE4JM09SMZYhvcY/InCeizy 5zFaIfpvU6HqVIO7uOBOdRjIWHMVWLLHIRUGOTKiK0ZiLK9d8NTaWkPF8PwRah9ckFoqbpzmmilqgZpJ WUSEiBDZRMgPyBOVPFHJE/EwvmOb1rkLj2JFSPZkma WPpeOWVY+lt/PORGkqmYg1LHiNjxAg6OlYtb3CA3whWlsPX3urlwk2fadvgah1n8BKoXJ5etBf3oLLxi xdvDuOIMLkrET6Rdd0VKVrTVdey8z/PNFqpCE93eU393//fFAZd//Hf/6P//unYUsx4akV//l///d/+7 /Wf//3//7P/+e//+f//E8Cf/Ro//d//SfPuGT7//1P FmDF9bp/BHLa0C/oF/QCvUC/od/Qn58+mary anne/vd9s60/vp9o/pZFxccer2v1/qu0//am/87AgQgjB5u3i 2u4c8S95Q8a/+pso2AVLrlFrcb8ep6OnF7ew1/ZPb9X+2fuoV/unP9X+2fvsbv/0W7L9s/eR0v/sfSo9 9I8i/k1Foto//Ur//Tbp07z98B31e7f4o/b+TXdK/2 tl8g7oV/oL/J46makSH/oF/YJeUr+r/dPXs/uMnxyGm5Y/1Mp2Od7rsi1rggoMDNRI7coAzYGj9F/o7+ jP86AN/YJ+QS/QC/Qb+n62zl6Fg5Wp9GW40A7h86TpB9jE6G4r78Odxm7CweH6BgeL2MimU8Nlye2GiH n7GlTh9PGx96F2y1/1VxXftx56RA/QX+eu3C885LV+ Qb+hq4elh22Wzw65Gjg07Dql93Yb0sxmnc/h+Rqer+R3At0l7kfwkz/j+Tqer+B7Jh1u7/d46WHN24BV Ya/AYxl8Tmaf9vvmhhstuXvol1Eei11XebB9IycH5ZlrW1JdcH1IjPJ0O/EL3T9DB2D6ZC/A4fJ4AMxM 9gbsDdgbsPc+Ce5uJ8pOpw23bZciLR4aoP7P7/M9+H 3Ru1Umyi2R2r5Iz9Cegh4J0s0Nj1LgUYqdvCk0uE/ffeZJkb7/OPwC27Q8P4UpfYxlSf9k2/v71N/n9/ cpfX1/S1/p82Hk848V5xE1Sf/tAl80p8ZiBlynK+kf6Dr7fi+y4o9pxsaPMwmLFdXSD48qfh/9gMRid5 ykDkHtj5/kgZA/3bU3bZxlNo6Uz3Szlqgi+7wi20Nv OzSzpmX3nqr+U685qqGh6Eh03pbrkyinFmJihn5Th581v6rs+FU90+HN4yhQbk2C3xezA2Mai7YgPc5+ MkLjywxC5cn++R3H2YpcqmKrFP0767aWy6iz2O/oF/HGa7W3LQN/PqXP/vy2oT/QH+gV+rT31G+mvW8b eofeoQ/oA/oL/S409vi1Ze8HxwXp7IAbT7jSH7gxfy 5oQ6/QK/KJbWQr4Tc96Na8Zq+9+XT7nmS8VC2olX4Nn+rsqjys3OO2HEHwo8B4t0YZr2zYz2UVcju6Ph 5d1T0pbSi4FIuml/oR9q652yqV6Jy6K0/XG/H5+5uo3/+9v1Lvi+x13JZph5vlwsbhjH3Hanh+tXsS+9 XPsFS1GbS0W8+LOvAKE9C6q3drvN072PyoqQ24bBaA ya/s1u/8nq+Xy2WiYecm+PXKH6PuvU/ze77W9/L5ci006zt+Xn0s+ZXXs0t+9d7n7/lG+or0KngF/Kps B78Sn++v+YaSaWgK44Vj6rSF86v77piDRpSPV2udoeS85leEc0prW/qA/kKP/hwuM6A6gE/Gj89MvCW2 A/GP2A4NO4T7KB/ux69p9NC7AC/C5eJ8UYW+B/pz3N Hf50Eb+sL8yv8nH+c54Ae3dY/ume/Unfl+jxa06yc6Mb/QO/Bc23xtQi0W/f2+z9uNnaewRNSqfGp29+ PextBvs9m7L/G1N/Qb+dTviD39bkeRrV7j8a7+lrNvcpVjMJiRti7tz3580e1xN6HXgf+i9PeL2+ziV2 8b+eQ5p9te/XlKKlMBFF9bld/lWLorfrVKn/GrVfoc o9E2MA30G+NXUn+K8pqrkvdqVhzqO7La+NXu+QZWtd8VCvzQT8ssU42orr/qyzJIV0YtAF2BoUmzd58y So4BYpd84oZCNbiSf+cm/cpss0bgd1G/2StP/p1Q2mdo3To4Ja7D27O4dt2xS3W8lPb/tLds3M/4Yae9 5ah2pt63xJ+3fN/NXNNiDrvi4a0tgk2tk/Sfnf25+t qKFp0YhvIqVdwt+u22j5/n0Yi3/2+e27YXoIYUWycu5C0yc7uBNc1d81REyzwxLCOPB2onntwTPMBC60 8+Mz7vM+UqDqo3My7G/kHg2Jt7Zr8L25C61XW4IP+hn+/Z2apioV8vL8Cd2/x8lqaNu+BZ4u6Jx+gP9A l2dU4kE+gNeofeoQ/oA/oL/E056ie7Sq7XBtXz4EXJ a7DXYK/BXsPzNTxfw/M1PF/F4sQ1R0CyPRqak/M1PF/E48R7B7ojaWkg1RdTalMGmuo10Zb/2uBXG/xq b19zt14Br8SgJdmTZt/a4Fcb/TtKG53hfn3+tcGvNvjVBr/a4Fcb/TvQJ46wsu7+tcGvNvjVBr/a4Fcb /OaCQ02eql7+uBF7HljF7Wiq05L0B/Xu6Exi94T4G/ Jh7Pkh27L6B/Ly4Mhk51W4Z/Nd5Fho53M2O/qwucv1E+41QxoC7Uy5mQ2c75Vp2N/4M5bKOjY39P71y6 6hD+gD+xg84M0ra0JhCNpS6M3br7MqFTzA0L2fh88828A92vq9pCzuPqf7WYgsp2mv0qo4RS5t4yAp85 f1N/Wa8HGdBs96/vtjsybF40N+Qb+gn/XBU/Gr5Len 1rsXW39Jv3i35+QEB0PpxSlzzTUsIspcY5md/b0/eZKb2Mm6U12kZ17oFhsbu7r+1fec/Osw0yymXLe4 YNrjh+NAY8n7zRa+cPaBXqHXjy+d4le72/C942zSEmGq5sgGf8vKfWJruk324E1F+kYWlt0e/T1n4s+n +NJIgiPFHkEVV1IDL3ZCE9CUJ84AvftuxZOwF5/ftw 80d2FG0/My6ovT8dbMd5e4ql+aN673lsKq1V/oBXqBfkM/9swkL701ouPC3YI/Y/soi83qy+rC0noiYI /qtL1gmjhbujBrOfdm4fdUFswt+sRY7luW824kf2ycq22yjjVsbmSWl51dxCx6g6ofVcS4B8PsxchS1S CyJLPl3k/568/EfoIF24os4c7oeAwV3f/xmf/meYD3 at80We3y5akfy67sNpeelsZhcv5m9/LOwtrrZaTKh0KWC7y9p3/V1y8LtkFtvshUeM+c7V+61go382ez fjnrT9wPfhl+5vd8ve/k93b48w0/nq/An7E8eqRUoas/vc/zGgglQ3ZrgsCd+mHxq+gyUO71SbkhI8P/ c2eUlQQb8Kk9Sq0E50OO2UDmVJMYA/aqtD8d4NdYcb TKzu501FB/OuBXB/mwmM6z4XrUiuTZce098RF/OuBXB/rtwC5x1AaThhFPglI9Lc+J1+de9Vz7AePQtC C/od/b55RtbsHRB/H3enrnCnq5TC/QO/ZKmMrzDJ9zLvfUrOn6cOjeudrO4Ol9fy6G/mFhqFZN5td8U/ oN/YH+sG0BLI27uqF862jkom+86F6810W1BSSVXS36 tqG/33ioxa+UE6hH26CwJ5pClPuShK8912bSv6hj2Y+A49xDRUt84Pk4I/rml7sqv+f1tL871GyPfGi5 O6aX+/M1xofq9dwDhEY/0tAz3INx+LW65wyALjptZYa+9bahX1/cTyt+rkSLW07xMk+a0q6b1tg47hyc kwmzG56V+/O4ybge8nq5jtwoZ/6Wm/P4Rij34o+2Q+ /QB/QB/YX+zu+f2U+Ye/Df+exGg6al+K8tB/Ye+eJ7uf3+9efZ4+kk21F04/10jsnU73Q27FmCUC881e Ht3Hb/9sOD/nxi+vmJ6f/nzmeu1zuarpp24wtdHa/6tUtGod9vzcoircB6GwenapX15njnMKo5Cp9RI/ OVrQCn1So4Vp3UM3Ec5PM+F2KtrU1K6YgX/FjFo9VC dwYrB3B8IfS/HbRmVRZcLsiLWs0OiP5X7OmP/ArRm8QGPPnruyTxA648yIqeahoniDzbL+KMejbLRn3u xZ5j7rjZ+CUdkcHJTrwsJ2v0pDJ+gDlaViUJuuvNDu4uzY3v3xkE+FCpuiEGHuarQ4l7mXF+pYhfKeJX gshFGs4rlS3x8ppG+JUifqWIXyniVwp+wgONBp5c0W cKfqXgVwp+cfOVLt4t0WxGbkWhAtv+tmDDKk6m5EaYlyYkIob+nvMVZc6k9EwDijQLTckgB9u1dJB+ZY csRzYXsobUUU8nrR9Z0xbA+UIhviLVZ6ny4QF8Ty5nH3Tt7O/o5/21Ne+ogRv5Ed+1HlK9PaR6LU+h39 DP/jpbM9+2RnsoiTq7Es7R8/gdx+/D3gV7F+xdsFdg r+X3Fr7iFJ+01opE6Mj/lRW/ym+QLb4HktjefOLo+HARoYTXSy7FQk94prL7/S7lmHyzAaQ2/Qv9nb+v +JV2+5gwBeFq1exzZl/y4tfP4geWwQABfyi0R/0KTeWC4P6/twi0DPqllpsf0X6n//JK63H5gF/fsFof LP/X+rT9L82lN/hC3NDMb1vV+ZFhfdDOfH/tzPzXKn 4OeKR98714g74wA/zKEL+k97E83UL/ys7Ec+xMPMfOxHNMZ3+q2BT9qb1IX6ZX3Vs42F2bAaqNUD/0Cr 0Fq2Fr0C01Xk/QB/QX+ieFgek76ecJwzH/oBfoBfoN/Yb+QH+gV+hhb/Er6/C4m5e1ezDdnbXIt20r/m t2I+1il+dbs/767N/s3j92cOh+eZT5nP+yH78 6m/CJ9X+zVOifuf3/tZ+MdTAaf5ixJceLu+Gbom741ndc24id1U7lc6+vniaFb/q/895GwLbF5+qGJpV /Gp1W/8/ci7Ue6OdwiX7bLc/eIeGYnZHE84YZm06XDQShd8/mG2Qeo1yhx9ltoKaG3NTN8g0zv/yvGb4 Dvu0SiJyVGlhvX+1ct0I/2rVNd/qx5SJvzs/KnPkVv hX93/l8JiFdH6dknlIC8zC6V/qntO/Bucyj4P01B0AFffMz9jCx9/pv323Yq95R6sjl2nfM4yzL1ygG6 jkU2XhovnqtP8ucmyiMjbSkw06hz3e+hjPB+/at4Jw4W/o+/3rT79//Xmg7/467un0DdkD+mC6rP0e+u 4lQfpma6/l8K8c/eBez0GrG+bAC8IsTwv0Rh06g213 Qcf+oGN/0LE/3NuddNeQZjXNZkwVLf5U30ox2JmdpGi0Ke1Y2GzCqvb2THHvB+fS+AKq3qyWSx00Vlj3 euXa71/AT9vEHwHE5UK5CF5x49p6srrwg7Bsb38F6VEhNq7q9J3z+1s/XTu+0mwvdto936m7+bf14qsq bm98y8vl+qzbza0or0rrRETTpH47gs5j5pcyEu6Ykc PrPONXt/3Ou7k3ku9Ywv/e1nb5aSl+7pRiFd6cTGNIwy7Humd9UhpuBykrvASMpiO9C10r3nc/um3oBX qBXr+2hPb4tuiD+sK7cI0Ky1Eirw/6PiN+Ozoc5lwu78m+ZrvPw/dwtz756i0s2HIE+FU+48zg0pjl7r 5668b8pieJi7d0qdjvmrH709Hq4VhwIQ963/19N+t5 jomPS30gvU215cgE+JUj/8ll54p2fa/32cCIxmjt86xOU4O2+UFP/yqfS/pXt/35A57+VT6j9K+qbdC3 f+Wr/IkoH0eC8zHz8U/oD/S9/+ve+7/uD/NSoJLn9Xq/7N7+s2d9actla9X/jv5m/KraC/gJrYRl9Y/o +daSe41Zdf/hli27fDseA2gJVlVLt9/6gb2y2Qtjgq x16hhdSq53+yxF838+bvR3o7/eh2zt7L/0/X3kp7+P/DzQC/QCvUKP/z7099H/B/1N/yytsk6K6kS0Ai CoDe3S9pH92Cj5L6d986HEbk/9fPfzQC/QC/QKvUI/oB/QT+cc2Cx2Ht+kC0R26R12tt1Gs1CQokT4Uh BN8W2QzhF2GxHW7F9NfgU5InSX2X7ZniU6LxGN5Z5N xuB8DdVO5K1QynK4CgYA1M8TxfQ1UpQU2P4GpcQ95vc6w51w/OfySj7QvaBl1Ne2xK67q63gpTTb5EaO oEzhZ1iBz0gLY3+/ujN+LsaixW6jIg5NnlXi3731ga1NzvaWrWGa80N92KUky/T76T200k53sJtvwI+3 Eb/ao+N1e3Z+7C2gM1vjWL/QK/QK/ejrz/af9+z45J 8k21E3XY3lz3vXl44App5Lbb1srmBmW/LbN/LbN/LbN/LbN/Lbt/X34Lb+/t3W+Gel4Ws8YPkk18qdmN 824lcb+Ts13j7NS+N5pN6+7/ed/gY42hf5z9n94T07bn8Pb9L/ra/ud7JBAzBF2XV8fI06F/7/Tv+q2h N5Dj4Ms4Dl9Sl2Zz0Tp6Ra3St/Ne8t+dbv8T0fN6zD VoIH3II20Re3e8qm4T/lM4V/yR5bIy8Xlb05pd0/f7d7j3/3nte+h706h2ciny1rx+3n+87a+/n28ffr P8Cw9n76R9Y4ivajnjQMV2/7nb8j+/k1A8cya5Bhw/YqV75N1wM6ex8QL5uoV+Lc3LhF8Q07ip9ST577 /vt8d/Yx/KudNgn/obd9kV4Tn/s+38xP2+FfrexX+F eW9xD+lWXfw7+Hirsch+337yX/PuJ1ac/wrzL+head animal trainer/8pyn4V/tLUfXq7dIn9emZ+92GjvUuem5i8Acn54D4+ bevE14p0Txw02Rz7Zjw9Km0mwG3/5haY7bVKcLDjYA9Wa2E/oJ/YTeoDfoF/QL+r6SHdDrFlbWlyk+33 2eA/1pPfyrA//bkX093Q0F/KsD/+sEprzvo390R/Vb C66n5Vy3R/oFfdcrOLU/DQF8M9BlB2Kk138icP66zH67sW49WUQC3LW0Li2JkgF/oTfo+3v/aK9XB/Wv Gsfqarn6dv024qnFP+RC0H7Wd+/9ftK/mbEnsS1YWoD1d80xfD2UqU36eR62fPWyjmH/eqbiKqr8i1e/ szl69HUdvnv5q8f7PpHG/9hp0k5jpq6/0r86qT/fPs AKIl09St+6bbtr+Mn4laS+09GLad029jmirmwbPkR3iC9V3Nd7ovJ+fnGnk/DsFIdYca8wtcb3gavmfB tk/MpTH/HeEPmPq3yaEkq21Nl12D897x7Unfr08+tF2YJggmR1lA27PbA/qnvO+ewXadjmj7P2hJmYBc iW2oz4CBIzirwi1HpR/lHriN0L4R2z3a/fY50/eSzP p8QYW+0/h0N8SC7d+PNZXY/ncI0tjuO/L5zMb8/5svo8+1mYv8i/KpyER27V/sZZC/oFfe+omUD4LzLe DupfHdS/Oqh/dVD/6qA+f5z2ZxPfoa166fuH+pz+Js8kzWD2T/0y51wynFwyG/UQpvoNrP64rFD/oT/Q d/2Ns/s6twz6AqWHebJdnTnz9t+N/m70d6O/8K8O4l qyw8nh3HU4pjssFguG/Yb+QN/ogND1IjjQA42CB4MK14C72sW+dRC/OohfnQN/67VbTTwgjl3w3J9det 7PF/Grg/sZGarsYE42g/SjUFzjmjGOyPnMJHBLCIEFAFgVXtEIHKSPJUBeGy3pY/emAAOP0CRY45UMWH gIESWiRAaRQWQSmUSMiBFZRBYRJ+VTiHCvSCD8OVrQ QR7T13W2KbFqCCsXmF4HBtGbCCqW5XhpX5pIbESYKKEAiDSKAREERM4CYpTTh91InSXSZniUyPygk2jm FruU0wCQSmWiPZZrOZ5QgvkmZiTS5DTt9c51BTN6iAONAh6opRfQ+SoObO2wR4p6yH2u9GH3me6X5/v+ X5fRgsgx+wkdGnsFIovIIuJEnMj+Xwln2UfaH9LGhq 9CP5L5NUSeHKLSh6e2Fonu+WsLgNqRYEM4AArOzLoidVlly0/SpNXfiKvi9XsjC6GoEBtpj0njwqMn23 XMXKY2B+TW/sUQa8bR7tKd9kgkRZtFqvniTxFpN3MU4Za6oYdqn4bZEIDvRShA3Xf77NNZBZTfcfI837 WoYiKNiJIMMqPUINXZLQCtKhdQm2GFRRWXgVamZpuJ DVUYpTS2IWH4gScWFkUVOZGSGEPQDSMC5eFjzf+hZUM3574cx/kmvhfbqFw4h0d/qeSfpd2PwbAgZn/O MbyI2lBUwOWA2/JYDBq3qnrpStK6Ggcbqvr+diaCqO0hFv31jqr/7o/w2wz9Ll/68p1YHTtHebowChY1 HZeHg0dtwljjgf7oXYjgZIRnOfOra/83p5fd5OCehu J+BkSnR5XssMVr/NDXNu3CCdSt4E5Qmh7l+WCGiO2g/BOGMY2I8xq5aoE4nWKBvw2XnSq2ymm+T0RdT9 0E79sP3LNTpJP7egERrxQX/AN54B+QwV7DcHcHDttYwiWfBHX5UwqSfVIVB9O/JndwYn0QjO0n6IMEcp IAGfH5nDK/AvsiKa7OzN1hWs9I0OOjPEkF+oaWX0QP Nkg/uRrjkimeLnXqReFiRVJhoZesx8ZCx4Ru9K4Alk2gDSF9UlKWitSNgx0vXvHe/tVyTqH1ymaY/ScQ RGI6440niU2jPKfmyQD2+ncoXhaNH9Zxr5upbqmGL5NX/9DnG7VZLWyeGmduymyr0F/F1ZGaKuTpnNZh A7WQ+UTYXOYjQSZMU7AV1sf8VJHVSDHLRUAMpI3Zqb [file] J+ciAV6Tl0cuE7cFBrvfnMQW5NurCydBG9y7w+[place] [file] [id number]== ID Date Data Source [id number] 07/19/2019 06:24:41 AM EDT [facility] Name Value Range Interpretation Code Description Data Candie rce(s) Supporting Document(s) TOTAL PROTEIN 7.4 g/dL (6.4-8.2) [facility] ALBUMIN 4.0 g/dL (3.5-4.6) [facility] GLOBULIN 3.4 g/dL (2.7-4.3) [facility] ALB/GLOB RATIO 1.2 RATIO [facility] BILIRUBIN,TOTAL 0.5 mg/dL (0.0-1.0) [facility] PLEASE NOTE:Total bilirubin results may be falselyelevated in patients taking Eltrombopag. BILIRUBIN,CONJUGATED 0.1 mg/dL (0.0-0.3) [facility] BILIRUBIN,UNCONJ. 0.4 mg/dL (0.0-0.7) [facility] ALKALINE PHOSPHATASE 113 U/L (45-117) [facility] AST (SGOT) 24 U/L (11-39) [facility] ALT (SGPT) 27 U/L (12-78) [facility] ID Date Data Source [id number] 07/19/2019 06:24:41 AM EDT [facility] Name Value Range Interpretation Code Description Data Candie rce(s) Supporting Document(s) MAGNESIUM 2.1 mg/dL (1.7-2.4) [facility] ID Date Data Source [id number] 07/19/2019 06:24:41 AM EDT [facility] Name Value Range Interpretation Code Description Data Candie rce(s) Supporting Document(s) SODIUM 136 mmol/L (136-145) [facility] POTASSIUM 3.7 mmol/L (3.6-5.2) [facility] CHLORIDE 105 mmol/L (100-108) [facility] CO2 26 mmol/L (22-31) [facility] ANION GAP 5 mmol/L (7-16) L [facility] UREA NITROGEN 12 mg/dL (7-24) [facility] CREATININE 0.97 mg/dL (0.80-1.30) [facility] BUN/CREAT RATIO 12.4 RATIO (10.0-20.0) [facility] GLUCOSE 91 mg/dL (70-99) [facility] CALCIUM 8.5 mg/dL (8.4-10.2) [facility] GFR >60 ml/min/1.73m2 (>59) [facility] GFR ( AMER) >60 ml/min/1.73m2 (>59) [facility] GFR INTERPRETATION [facility] --NORMAL KIDNEY FUNCTION OR MILD DISEASE - GFR >OR= 60CHRONIC KIDNEY DISEASE - GFR 15 - 59RENAL FAILURE - GFR <15 Est. GFR calculation based on the MDRDstudy equation, which assumes a steadystate for creatinine. Est. GFR should notbe used for medication dosing. ID Date Data Source [id number] 07/19/2019 06:24:41 AM EDT [facility] Name Value Range Interpretation Code Description Data Candie rce(s) Supporting Document(s) TROPONIN I <0.05 ng/mL (<0.05) [facility] Less than 0.05: Myocardial injury unlike lyGreater than or equal to 0.05: Highly suggestive of myocardial injuryCorrelation with rise and/or fall ofserial troponins, clinical symptomsand ECG changes is necessary. ID Date Data Source [id number] 07/19/2019 06:08:15 AM EDT [facility] Name Value Range Interpretation Code Description Data Candie rce(s) Supporting Document(s) WBC 5.6 10*3/uL (4.1-11.0) [facility] RBC 4.89 10*6/uL (4.60-6.10) [facility] HGB 13.8 g/dL (13.5-18.0) [facility] HCT 40.8 % (41.0-53.0) L [facility] MCV 83.3 fL (80.0-95.0) [facility] MCH 28.2 pg (27.0-32.0) [facility] MCHC 33.9 g/dL (32.0-36.0) [facility] RDW 15.3 % (10.5-14.5) H [facility] PLT 240 10*3/uL (150-450) [facility] MPV 7.8 fL (7.1-10.7) [facility] NEUT % 63.9 % (35.0-75.0) [facility] LYMPH % 20.6 % (16.0-52.0) [facility] MONO % 11.9 % (0.0-8.0) H [facility] EOS % 3.1 % (0.0-5.0) [facility] BASO % 0.5 % (0.0-4.0) [facility] NEUT # 3.6 10*3/uL (1.8-7.7) [facility] LYMPH # 1.2 10*3/uL (1.2-4.8) [facility] MONO # 0.7 10*3/uL (0.0-0.8) [facility] Eosinophils [#/volume] in Blood by Automated count 0.2 10*3/uL (0.0-0 .5) [facility] BASO # 0.0 10*3/uL (0.0-0.2) [facility] Procedure Social History Code Duration Value Status Description Data Source(s ) Smoking 11/04/2019 12:00:00 AM EDT Patient has never smoked co mpleted Patient has never smoked [facility] Smoking 07/19/2019 05:56:00 AM EDT Former Smoker completed Former Smoker [facility] Vital Signs ID Date Data Source [...] (applies to non-numeric resul ts) 74 min [facility] Body weight Measured 220 [lb_av] Normal (applies to n on-numeric results) 220 [lb_av] [facility] Body temperature 36.9 caitlin Normal (applies to non-numeric results) 36.9 caitlin [facility] Respiratory rate 16 min Normal (applies to non-numeric results) 16 min [facility] Deprecated Oxygen saturation in Capillary blood by Oximetry 96 % Normal (applies to non-numeric results) 96 % [facility] Body height 190.1952 cm Normal (applies to non-numeric res ults) 190.1952 cm [facility] Body mass index (BMI) [Ratio] 27.4 kg/m2 No rmal (applies to non-numeric results) 27.4 kg/m2 [facility] Diastolic blood pressure 84 mm[Hg] Normal (applies to non-numeric results) 84 mm[Hg] [facility] Systolic blood pressure 117 mm[Hg] Normal (applies t o non-numeric results) 117 mm[Hg] [facility]
[2020-06-09 17:13] LABS: ACETAMINOPHEN LEVEL 2.9 UG/ML (10.0-30.0); ALBUMIN 3.4 GM/DL (3.2-5.2); ALT/SGPT 24 U/L (12-78); BILIRUBIN,DIRECT < 0.1 MG/DL (0.0-0.2); BLOOD UREA NITROGEN 11 MG/DL (7-18); CALCIUM LEVEL 8.7 MG/DL (8.5-10.1); CARBON DIOXIDE LEVEL 26 MEQ/L (21-32); CHLORIDE LEVEL 106 MEQ/L (98-107); CK-MB VALUE MASS 1.2 NG/ML (<3.6); CPK CREATINE PHOSPHOKINASE 93 U/L (39-308); CREATININE FOR GFR 1.17 MG/DL (0.70-1.30); ETHYL ALCOHOL (ETHANOL) < 0.003 % (0.000-0.010); GLOMERULAR FILTRATION RATE > 60.0 (>60); GLUCOSE, FASTING 98 MG/DL (70-100); MB/CK RELATIVE INDEX 1.29 (< OR =4); POTASSIUM SERUM 4.3 MEQ/L (3.5-5.1); SALICYLATE LEVEL 3.4 MG/DL (5.0-30.0); SODIUM LEVEL 138 MEQ/L (136-145); THYROID STIMULATING HORMONE 0.694 uIU/ML (0.358-3.740); TOTAL PROTEIN 7.3 GM/DL (6.4-8.2); TROPONIN I 0.04 NG/ML (< 0.10)
[2020-06-09 17:45] VITALS: BP 151/81
[2020-06-09 17:50] LABS: BILIRUBIN,TOTAL < 0.1 MG/DL (0.2-1.0)
--- NOTE | 2020-06-10 20:46 | ECGEPIP ---
[facility] - ED Test Date: 2020-06-09 Pat Name: KARLA LEYVA Department: Room: - Gender: Male [employer] Scheduler: conchis : 1975 Requested By: REGINE LUCAS Order Number: [id number] Reading MD: Barbie Rangel Measurements Intervals [place] Rate: 72 P: 13 DE: 170 QRS: -37 QRSD: 92 T: 12 QT: 396 QTc: 433 Interpretive Statements Normal sinus rhythm Left axis deviation Minimal voltage criteria for LVH, may be normal variant ( R in aVL ) increased rate 05/12/15 Electronically Signed on 06-10-2020 20:45:38 EST by Barbie Rangel
== END 2020-06-09 18:18 | disposition home or self-care (01) ==
LOC: M ED 15:46
DX: F41.9 Anxiety disorder, unspecified (principal); F17.200 Nicotine dependence, unspecified, uncomplicated; I10 Essential (primary) hypertension; Z79.899 Other long term (current) drug therapy
CPT/HCPCS: 36415; 70450; 71045; 80048; 80076; 80143; 82077; 82550; 82553; 84443; 84484; 85025; 93005; 93041; 94760; 96374; 99285; J2060

== ENCOUNTER → 2020-06-20 | Outpatient (CLI) | payer OTHER ==
[~2020-06-20] MED LIST changes: +AMPH1CAP14 PO; +CLON0.2T PO; +QUET200T2 PO; +QUET50TA3 PO; +RISP-9 PO; +VITA50005 PO
[2020-06-20 16:47] LABS: BASO % 0.4 % (0.0-1.0); EOS % 0.1 % (0.0-3.0); HEMATOCRIT 41.1 % (42.0-52.0); HEMOGLOBIN 13.5 g/dl (13.5-17.5); LYMPH # 1.7 10^3/uL (1.5-5.0); LYMPH % 18.5 % (24.0-44.0); MEAN CORPUSCULAR HEMOGLOBIN 28.3 pg (27.0-33.0); MEAN CORPUSCULAR HGB CONC 32.8 g/dl (32.0-36.5); MEAN CORPUSCULAR VOLUME 86.2 fl (80.0-96.0); MONO # 0.7 10^3/uL (0.0-0.8); MONO % 8.3 % (2.0-8.0); NEUTROPHILS # 6.4 10^3/uL (1.5-8.5); PLATELET COUNT, AUTOMATED 287 10^3/uL (150-450); RED BLOOD COUNT 4.77 10^6/uL (4.30-6.10); WHITE BLOOD COUNT 8.9 10^3/uL (4.0-10.0)
[2020-06-20 17:07] LABS: ALBUMIN 3.5 GM/DL (3.2-5.2); ALT/SGPT 27 U/L (12-78); BILIRUBIN,TOTAL 0.2 MG/DL (0.2-1.0); BLOOD UREA NITROGEN 12 MG/DL (7-18); C REACTIVE PROTEIN QUANTITATIV 1.99 MG/DL (0.00-0.30); CALCIUM LEVEL 8.5 MG/DL (8.5-10.1); CARBON DIOXIDE LEVEL 30 MEQ/L (21-32); CHLORIDE LEVEL 105 MEQ/L (98-107); CREATININE FOR GFR 1.13 MG/DL (0.70-1.30); GLOMERULAR FILTRATION RATE > 60.0 (>60); GLUCOSE, FASTING 89 MG/DL (70-100); POTASSIUM SERUM 4.1 MEQ/L (3.5-5.1); RHEUMATOID FACTOR QUANT < 10.0 IU/ML (<15.0); SODIUM LEVEL 139 MEQ/L (136-145); TOTAL PROTEIN 7.4 GM/DL (6.4-8.2); URIC ACID 6.5 MG/DL (3.5-7.2)
[2020-06-20 17:16] LABS: VITAMIN B12 LEVEL 344 PG/ML (247-911)
[2020-06-20 17:17] LABS: FOLATE 5.2 NG/ML (>5.4)
== END ==
LOC: M LAB 15:55
PROVIDERS: ATTEND Nurse Practitioner Family
DX: M12.9 Arthropathy, unspecified (principal)

== ENCOUNTER → 2020-07-17 | Outpatient (REF) | payer OTHER ==
[2020-07-17 18:54] LABS: BASO # 0.1 10^3/uL (0.0-0.2); BASO % 0.9 % (0.0-1.0); EOS # 0.1 10^3/uL (0.0-0.5); EOS % 1.7 % (0.0-3.0); HEMOGLOBIN 13.8 g/dl (13.5-17.5); LYMPH # 1.9 10^3/uL (1.5-5.0); LYMPH % 27.3 % (24.0-44.0); MEAN CORPUSCULAR HEMOGLOBIN 28.2 pg (27.0-33.0); MEAN CORPUSCULAR HGB CONC 32.1 g/dl (32.0-36.5); MEAN CORPUSCULAR VOLUME 87.8 fl (80.0-96.0); MONO # 0.5 10^3/uL (0.0-0.8); MONO % 7.7 % (2.0-8.0); NEUTROPHILS # 4.3 10^3/uL (1.5-8.5); PLATELET COUNT, AUTOMATED 256 10^3/uL (150-450); WHITE BLOOD COUNT 6.9 10^3/uL (4.0-10.0)
[2020-07-17 20:10] LABS: ERYTHROCYTE SEDIMENTATION RATE 35 mm/hr (0-15)
== END ==
LOC: M SFHCPLAZ 14:07
PROVIDERS: ATTEND Internal Medicine Infectious Disease
DX: A69.20 Lyme disease, unspecified (principal)

== ENCOUNTER → 2020-12-12 | Outpatient (REF) | payer OTHER ==
[~2020-12-12] MED LIST changes: +ERGO500029 PO; -QUET50TA3 PO; +QUET50TA4 PO; -VITA50005 PO
[2020-12-12 17:43] LABS: BASO # 0.1 10^3/uL (0.0-0.2); BASO % 0.8 % (0.0-1.0); EOS # 0.2 10^3/uL (0.0-0.5); EOS % 2.8 % (0.0-3.0); HEMATOCRIT 43.3 % (42.0-52.0); HEMOGLOBIN 14.1 g/dl (13.5-17.5); LYMPH # 2.1 10^3/uL (1.5-5.0); LYMPH % 34.5 % (24.0-44.0); MEAN CORPUSCULAR HEMOGLOBIN 27.6 pg (27.0-33.0); MEAN CORPUSCULAR HGB CONC 32.6 g/dl (32.0-36.5); MEAN CORPUSCULAR VOLUME 84.7 fl (80.0-96.0); MONO # 0.6 10^3/uL (0.0-0.8); MONO % 9.2 % (2.0-8.0); NEUTROPHILS # 3.2 10^3/uL (1.5-8.5); NEUTROPHILS % 52.2 % (36.0-66.0); PLATELET COUNT, AUTOMATED 317 10^3/uL (150-450); RED BLOOD COUNT 5.11 10^6/uL (4.30-6.10); WHITE BLOOD COUNT 6.2 10^3/uL (4.0-10.0)
[2020-12-12 17:52] LABS: APPEARANCE, URINE CLEAR (CLEAR); BACTERIA, URINE AUTO NEGATIVE (NEGATIVE); BILIRUBIN, URINE AUTO NEGATIVE (NEGATIVE); BLOOD, URINE BLOOD NEGATIVE (NEGATIVE); COLOR, URINE YELLOW (YELLOW); GLUCOSE, URINE (UA) AUTO NEGATIVE (NEGATIVE); KETONE, URINE AUTO NEGATIVE (NEGATIVE); LEUKOCYTE ESTERASE, URINE AUTO NEGATIVE (NEGATIVE); MUCUS, URINE SMALL (NEGATIVE); NITRITE, URINE AUTO NEGATIVE (NEGATIVE); PROTEIN, URINE AUTO NEGATIVE (NEGATIVE); RBC, URINE AUTO 0 /HPF (0-3); SPECIFIC GRAVITY URINE AUTO 1.006 (1.002-1.035); SQUAMOUS EPITHELIAL CELL UR AU 0 /HPF (0-6); UROBILINOGEN, URINE AUTO 0.2 mg/dL (0.0-2.0); WBC, URINE AUTO 0 /HPF (0-3)
[2020-12-12 18:07] LABS: CREATININE,RANDOM URINE 50.7 MG/DL; TOTAL PROTEIN,RANDOM URINE < 5.0 MG/DL (0.0-12.0)
[2020-12-12 18:11] LABS: ALBUMIN 3.6 GM/DL (3.2-5.2); ALT/SGPT 28 U/L (12-78); BILIRUBIN,TOTAL 0.3 MG/DL (0.2-1.0); BLOOD UREA NITROGEN 8 MG/DL (7-18); C REACTIVE PROTEIN QUANTITATIV 0.73 MG/DL (0.00-0.30); CARBON DIOXIDE LEVEL 27 MEQ/L (21-32); CHLORIDE LEVEL 107 MEQ/L (98-107); COMPLEMENT C3 156 MG/DL (90-180); COMPLEMENT C4 27 MG/DL (10-40); CPK CREATINE PHOSPHOKINASE 78 U/L (39-308); CREATININE FOR GFR 0.92 MG/DL (0.70-1.30); GLOMERULAR FILTRATION RATE > 60.0 (>60); GLUCOSE, FASTING 76 MG/DL (70-100); LDH LACTATE DEHYDROGENASE 169 U/L (87-241); POTASSIUM SERUM 4.7 MEQ/L (3.5-5.1); SODIUM LEVEL 139 MEQ/L (136-145); TOTAL PROTEIN 7.5 GM/DL (6.4-8.2)
[2020-12-12 19:36] LABS: ERYTHROCYTE SEDIMENTATION RATE 27 mm/hr (0-15)
== END ==
LOC: M SFHCRHEU 14:39
PROVIDERS: ATTEND Internal Medicine Rheumatology
DX: R76.8 Other specified abnormal immunological findings in serum (principal)

== ENCOUNTER 2021-06-20 07:37 | Inpatient (IN) | payer OTHER ==
[~2021-06-20] VITALS: Ht 188 cm; Wt 95.4 kg
[2021-06-20 08:33] LABS: HEMATOCRIT 44.4 % (42.0-52.0); HEMOGLOBIN 14.4 g/dl (13.5-17.5); MEAN CORPUSCULAR HEMOGLOBIN 27.1 pg (27.0-33.0); MEAN CORPUSCULAR HGB CONC 32.4 g/dl (32.0-36.5); MEAN CORPUSCULAR VOLUME 83.6 fl (80.0-96.0); PLATELET COUNT, AUTOMATED 422 10^3/uL (150-450); RED BLOOD COUNT 5.31 10^6/uL (4.30-6.10); WHITE BLOOD COUNT 13.1 10^3/uL (4.0-10.0)
[2021-06-20 08:34] LABS: AMPHETAMINES LEVEL URINE POSITIVE (NEGATIVE); BARBITURATES URINE NEGATIVE (NEGATIVE); BENZODIAZEPINES URINE NEGATIVE (NEGATIVE); CANNABINOIDS URINE POSITIVE (NEGATIVE); COCAINE METABOLITE URINE NEGATIVE (NEGATIVE); METHADONE URINE NEGATIVE (NEGATIVE); OPIATES URINE NEGATIVE (NEGATIVE); PHENCYCLIDINE URINE NEGATIVE (NEGATIVE)
[2021-06-20 08:49] LABS: ACETAMINOPHEN LEVEL < 2.0 UG/ML (10.0-30.0); ALBUMIN 3.9 GM/DL (3.2-5.2); ALT/SGPT 25 U/L (12-78); BILIRUBIN,DIRECT < 0.1 MG/DL (0.0-0.2); BILIRUBIN,TOTAL 0.2 MG/DL (0.2-1.0); BLOOD UREA NITROGEN 9 MG/DL (7-18); CALCIUM LEVEL 8.7 MG/DL (8.5-10.1); CARBON DIOXIDE LEVEL 25 MEQ/L (21-32); CHLORIDE LEVEL 109 MEQ/L (98-107); CREATININE FOR GFR 1.01 MG/DL (0.70-1.30); ETHYL ALCOHOL (ETHANOL) 0.168 % (0.000-0.010); GLOMERULAR FILTRATION RATE > 60.0 (>60); GLUCOSE, FASTING 91 MG/DL (70-100); POTASSIUM SERUM 4.2 MEQ/L (3.5-5.1); SALICYLATE LEVEL 2.1 MG/DL (5.0-30.0); SODIUM LEVEL 143 MEQ/L (136-145); TOTAL PROTEIN 7.8 GM/DL (6.4-8.2)
[2021-06-20] MEDS ORDERED: MULTIVITAMINS/MINERALS THERAP 1 TAB PO SCH (09:00)
[2021-06-20] MEDS ORDERED: FOLIC ACID 1 MG TAB PO SCH (09:00)
[2021-06-20] MEDS ORDERED: rOPINIRole 1MG TAB PO SCH ×2 (09:00→21:00)
[2021-06-20] MEDS ORDERED: THIAMINE 100 MG TAB PO SCH (09:00)
[2021-06-20] MEDS ORDERED: LORazepam 2 MG TAB PO STA ×2 (09:14→16:00)
[2021-06-20] MEDS ORDERED: OLANZapine ORAL DISINTEGRATING TAB 5MG PO ONE ×2 (09:15→17:05)
[2021-06-20] MEDS ORDERED: LORazepam 2 MG TAB PO PRN (09:15)
[2021-06-20 15:32] LABS: RSV AMPLIFICATION NEGATIVE (NEGATIVE)
[2021-06-20] MEDS ORDERED: QUET50TA4 PO (16:14)
[2021-06-20] MEDS ORDERED: QUET200T2 PO (16:14)
[2021-06-20] MEDS ORDERED: CLON0.2T PO ×2 (16:14)
[2021-06-20] MEDS ORDERED: ADDE10CA3 PO (16:14)
[2021-06-20] MEDS ORDERED: PROP20TA PO (16:14)
[2021-06-20] MEDS ORDERED: ERGO500029 PO (16:14)
[2021-06-20] MEDS ORDERED: ROPI3TAB3 PO (16:14)
[2021-06-20] MEDS ORDERED: MODA200T15 PO (16:16)
[2021-06-20] MEDS ORDERED: BELS1TAB3 PO (16:16)
[2021-06-20] MEDS ORDERED: HOME MED LIST COMPLETE! XX SCH (16:20)
[2021-06-20] MEDS ORDERED: MAALOX 30 ML SUSP *UDC PO PRN (17:55)
[2021-06-20] MEDS ORDERED: NICOTINE 21MG/24HR 1 EA TRANSDERMAL TD PRN (17:55)
[2021-06-20] MEDS ORDERED: ACETAMINOPHEN TAB 650MG DOSE (2X325MG) PO PRN (17:55)
[2021-06-20] MEDS ORDERED: MOM 30ML SUSPENSION UDC PO PRN (17:55)
[2021-06-20] MEDS: QUEtiapine FUMARATE 200 MG TAB PO SCH (21:30)
[2021-06-20] MEDS: THIAMINE 100 MG TAB PO SCH (21:31)
[2021-06-20] MEDS: LORazepam 2 MG TAB PO PRN ×3 (21:31→23:22)
[2021-06-20] MEDS: cloNIDine 0.2 MG TAB PO SCH (21:37)
[2021-06-20] MEDS: PROPRANOLOL 20 MG TAB PO SCH (21:38)
[2021-06-20 21:40] VITALS: BP 127/68
[2021-06-20 21:46] VITALS: BP 127/68
[2021-06-20] MEDS: rOPINIRole 1MG TAB PO SCH (22:00)
[2021-06-20 23:18] VITALS: BP 141/79
[2021-06-21] MEDS: LORazepam 2 MG TAB PO PRN ×2 (05:36→22:31)
[2021-06-21 05:45] VITALS: BP 173/98
[2021-06-21 06:27] VITALS: BP 173/98
[2021-06-21] MEDS: PROPRANOLOL 20 MG TAB PO SCH ×2 (09:16→20:19)
[2021-06-21] MEDS: cloNIDine 0.2 MG TAB PO SCH ×2 (09:16→20:19)
[2021-06-21] MEDS: THIAMINE 100 MG TAB PO SCH ×2 (09:17→20:19)
[2021-06-21] MEDS: FOLIC ACID 1 MG TAB PO SCH (09:17)
[2021-06-21] MEDS: rOPINIRole 1MG TAB PO SCH ×2 (09:18→20:19)
[2021-06-21] MEDS: QUEtiapine FUMARATE 200 MG TAB PO SCH ×2 (09:18→20:19)
[2021-06-21] MEDS: MULTIVITAMINS/MINERALS THERAP 1 TAB PO SCH (09:18)
[2021-06-21] MEDS: FLUoxetine 20 MG CAP PO SCH (09:18)
[2021-06-21] MEDS ORDERED: QUEtiapine FUMARATE 50MG TAB PO ONE (11:30)
[2021-06-21] MEDS ORDERED: OLANZapine ORAL DISINTEGRATING TAB 5MG PO STA (14:56)
[2021-06-21] MEDS ORDERED: NAPROXEN 250 MG TAB PO PRN (15:00)
[2021-06-21 22:31] VITALS: BP 134/76
[2021-06-22] MEDS: LORazepam 2 MG TAB PO PRN (03:43)
[2021-06-22 03:50] VITALS: BP 120/80
[2021-06-22 06:23] VITALS: BP 146/79
[2021-06-22] MEDS ORDERED: NICO14DI24 TOP (08:27)
[2021-06-22 08:36] VITALS: BP 132/84
[2021-06-22] MEDS: QUEtiapine FUMARATE 200 MG TAB PO SCH (08:37)
[2021-06-22] MEDS: FOLIC ACID 1 MG TAB PO SCH (08:37)
[2021-06-22] MEDS: PROPRANOLOL 20 MG TAB PO SCH (08:37)
[2021-06-22] MEDS: THIAMINE 100 MG TAB PO SCH (08:37)
[2021-06-22] MEDS: rOPINIRole 1MG TAB PO SCH (08:37)
[2021-06-22] MEDS: FLUoxetine 20 MG CAP PO SCH (08:38)
[2021-06-22] MEDS: MULTIVITAMINS/MINERALS THERAP 1 TAB PO SCH (08:38)
[2021-06-22 08:44] VITALS: BP 132/84
[2021-06-22] MEDS: cloNIDine 0.2 MG TAB PO SCH (08:44)
[2021-06-24] MEDS ORDERED: VITAMIN D 50,000 UNITS CAPSULE (ERGOCALCIFEROL 1.25MG) PO SCH (09:00)
== END 2021-06-22 11:38 | disposition home or self-care (01) | DRG 882 ==
LOC: M ED 07:37 → M ED INP 17:55 → M PSY 21:00
PROVIDERS: ADMIT Psychiatry & Neurology Psychiatry; ATTEND Psychiatry & Neurology Psychiatry
DX: F43.10 Post-traumatic stress disorder, unspecified (principal); F10.159 Alcohol abuse with alcohol-induced psychotic disorder, unspecified; Z87.820 Personal history of traumatic brain injury; F12.159 Cannabis abuse with psychotic disorder, unspecified; G20 Parkinson's disease; Z51.81 Encounter for therapeutic drug level monitoring; Z91.82 Personal history of military deployment; F17.200 Nicotine dependence, unspecified, uncomplicated; Z20.822 Contact with and (suspected) exposure to COVID-19; R41.89 Other symptoms and signs involving cognitive functions and awareness; Z79.899 Other long term (current) drug therapy

== ENCOUNTER → 2022-04-25 | Outpatient (CLI) | payer OTHER ==
[~2022-04-25] MED LIST changes: +ADDE10CA3 PO; +BELS1TAB3 PO; +MODA200T15 PO; +NICO14DI24 TOP; +PROP20TA PO; +ROPI3TAB3 PO
== END ==
LOC: M RAD 07:07
PROVIDERS: ATTEND Nurse Practitioner Family
DX: R74.01 Elevation of levels of liver transaminase levels (principal)